=== PATIENT | female | born 1940 | race Caucasian/White ===

== ENCOUNTER 2017-01-17 12:36 | Emergency (ER) | payer OTHER ==
[~2017-01-17] VITALS: Ht 165.1 cm; Wt 66.0 kg
[~2017-01-17 12:36] MED LIST: ASPI81TA82 PO; ATOR40TA49 PO; AUGM875T PO; CARA1TAB2 PO; GABA100C4 PO; GLIP10TA6 PO; LISI-363 PO; OMEP20TA39 PO
[2017-01-17 12:56] VITALS: BP 220/101; PULSE 49; RESP 18; TEMP 98.3; O2SAT 98
--- NOTE | 2017-01-17 13:14 | PD ---
HPI Chief Complaint: Dizziness Time Seen by Provider: 12:51 Travel History International Travel<30 days: No Contact w/Intl Traveler<30days: No Traveled to known affect area: No History of Present Illness HPI This 76-year-old female says that about an hour ago she had a funny feeling in her head. She has some trouble describing this feeling. She says the room was not spinning but she did feel right and is afraid she was given a fall. The symptoms are worse when she moves. She does not recall having this sensation before. She is not having a headache. She is not having any chest pain or shortness of breath. She does have a history of coronary artery disease. She had bypass 5 2004. She has a history of hypertension and has not taken her blood pressure medicine yet today. She normally takes it at noon. She had felt well earlier today. She went to [employer] this morning. In general she says she has a very poor appetite. She has a history of diabetes. She was able to walk to her son's car [facility] Past Medical History Cardiovascular Problems: Yes High Cholesterol: Yes Coronary Artery Disease: Yes Diabetes: Yes GERD: Yes Past Surgical History Cholecystectomy: Yes Coronary Artery Bypass Graft: Yes Social History Alcohol Use: No Tobacco Use: No Substance Use: No Allergies-Medications (Allergen,Severity, Reaction): Coded Allergies: No Known Allergies (Unverified , 01/17/17) Reported Meds & Prescriptions Reported Meds & Active Scripts Active Reported Gabapentin 100 Mg Cap 100 Mg PO HS Atorvastatin (Atorvastatin Calcium) 40 Mg Tab 40 Mg PO HS Carafate (Sucralfate) 1 Gm Tab 1 Gm PO TID On empty stomach Glipizide 5 Mg Tab 5 Mg PO BIDAC Take 30 minutes before a meal Lisinopril 10 Mg Tab 10 Mg PO DAILY Aspirin Low Dose (Aspirin) 81 Mg Chew 81 Mg CHEW DAILY Review of Systems General / Constitutional: No: Fever, Chills Eyes: No: Diploplia HENT: No: Headaches Cardiovascular: No: Chest Pain or Discomfort, Palpitations Respiratory: No: Cough, Shortness of Breath Gastrointestinal: Positive: Loss of Appetite, No: Vomiting Genitourinary: No: Urgency, Frequency Musculoskeletal: No: Myalgias, Arthralgias Skin: No Rash Neurologic: Positive: Weakness, No: Syncope, Focal Abnormalities, Change in Mentation Endocrine: No: Heat Intolerance, Cold Intolerance Hematologic/Lymphatic: No: Easy Bruising Physical Exam Narrative GENERAL: Well-developed female. Pulse rate is 50 and blood pressure 200/100 SKIN: Focused skin assessment warm/dry. HEAD: Atraumatic. Normocephalic. EYES: Pupils equal and round. No scleral icterus. No injection or drainage. ENT: No nasal bleeding or discharge. Mucous membranes pink and moist. NECK: Trachea midline. No JVD. CARDIOVASCULAR: Regular rate and rhythm. Systolic murmur is present throughout the precordium RESPIRATORY: No accessory muscle use. Clear to auscultation. Breath sounds equal bilaterally. GASTROINTESTINAL: Abdomen soft, non-tender, nondistended. Hepatic and splenic margins not palpable. MUSCULOSKELETAL: No obvious deformities. No clubbing. No cyanosis. No edema. NEUROLOGICAL: Awake and alert. No obvious cranial nerve deficits. Motor grossly within normal limits. Normal speech. PSYCHIATRIC: Appropriate mood and affect; insight and judgment normal. Data Data Last Documented VS Vital Signs Date Time Temp Pulse Resp B/P Pulse Ox O2 Delivery O2 Flow Rate FiO2 01/17/17 14:31 47 18 183/71 98 Room Air 01/17/17 12:56 98.3 Orders Electrocardiogram (01/17/17 13:07) Complete Blood Count With Diff (01/17/17 13:07) Basic Metabolic Panel (Bmp) (01/17/17 13:07) Troponin I (01/17/17 13:07) Urinalysis - C+S If Indicated (01/17/17 13:07) Magnesium (Mg) (01/17/17 13:07) Thyroid Stimulating Hormone (01/17/17 13:07) Ct Brain W/O Iv Contrast(Rout) (01/17/17 13:07) Lisinopril (Prinivil) (01/17/17 13:15) Lisinopril (Prinivil) (01/17/17 13:15) Orthostatic Vital Signs (01/17/17 13:14) Meclizine (Antivert) (01/17/17 13:30) Labs Laboratory Tests Test 01/17/17 01/17/17 11:58 13:50 White Blood Count 7.1 TH/MM3 Red Blood Count 4.69 MIL/MM3 Hemoglobin 14.2 GM/DL Hematocrit 42.0 % Mean Corpuscular Volume 89.5 FL Mean Corpuscular Hemoglobin 30.3 PG Mean Corpuscular Hemoglobin 33.9 % Concent Red Cell Distribution Width 13.0 % Platelet Count 152 TH/MM3 Mean Platelet Volume 9.0 FL Neutrophils (%) (Auto) 54.4 % Lymphocytes (%) (Auto) 37.2 % Monocytes (%) (Auto) 7.5 % Eosinophils (%) (Auto) 0.6 % Basophils (%) (Auto) 0.3 % Neutrophils # (Auto) 4.0 TH/MM3 Lymphocytes # (Auto) 2.6 TH/MM3 Monocytes # (Auto) 0.5 TH/MM3 Eosinophils # (Auto) 0.0 TH/MM3 Basophils # (Auto) 0.0 TH/MM3 CBC Comment DIFF FINAL Differential Comment Sodium Level 143 MEQ/L Potassium Level 3.7 MEQ/L Chloride Level 105 MEQ/L Carbon Dioxide Level 25.8 MEQ/L Anion Gap 12 MEQ/L Blood Urea Nitrogen 19 MG/DL Creatinine 0.68 MG/DL Estimat Glomerular Filtration 84 ML/MIN Rate Random Glucose 87 MG/DL Calcium Level 9.4 MG/DL Magnesium Level 1.9 MG/DL Troponin I LESS THAN 0.02 NG/ML Thyroid Stimulating Hormone 3.010 uIU/ML 3rd Gen Urine Collection Type CLEAN CATCH Urine Color YELLOW Urine Turbidity CLEAR Urine pH 5.5 Urine Specific [place] 1.006 Urine Protein NEG mg/dL Urine Glucose (UA) NEG mg/dL Urine Ketones NEG mg/dL Urine Occult Blood TRACE Urine Nitrite NEG Urine Bilirubin NEG Urine Leukocyte Esterase SMALL Urine RBC 0-3 /hpf Urine WBC 0-2 /hpf Microscopic Urinalysis Comment CULT NOT INDICATED MDM Medical Decision Making Medical Screen Exam Complete: Yes Emergency Medical Condition: Yes Medical Record Reviewed: Yes Differential Diagnosis Differential includes dysrhythmia, electrolyte imbalance, CVA Narrative Course EKG shows sinus bradycardia with a rate of 50. Review of chart from last few years shows a her pulses persistently low. She has readings of 54, 46 and 48 in the last few years. Later in the course of her ER stay she says that this feeling seems worse when she looks to the right. A CT scan of the brain has been obtained and read as negative. Patient was given Antivert and reports some improvement in her symptoms after the Antivert. She is able to look to the right. She has some residual discomfort. Diagnosis Primary Impression: Vertigo Scripts Meclizine 25 Mg Tab25 Mg PO TID PRN (VERTIGO) #20 TAB Ref 0 Prov:Chino Jose MD 01/17/17 Disposition: 01 DISCHARGE HOME Condition: Stable Chino Jose MD Jan 17, 2017 13:14
[2017-01-17] MEDS ORDERED: LISINOPRIL 5 MG TAB PO ONE (13:15)
[2017-01-17] MEDS ORDERED: LISINOPRIL 10 MG TAB PO ONE (13:15)
[2017-01-17] MEDS ORDERED: GABA100C4 PO (13:17)
[2017-01-17] MEDS ORDERED: ASPI81CH37 CHEW (13:17)
[2017-01-17] MEDS ORDERED: CARA1TAB6 PO (13:17)
[2017-01-17] MEDS ORDERED: ATOR40TA16 PO (13:17)
[2017-01-17] MEDS ORDERED: LISI10TA3 PO (13:17)
[2017-01-17] MEDS ORDERED: GLIP5TAB8 PO (13:17)
[2017-01-17 13:20] LABS: BASOPHIL % 0.3 % (0.0-2.0); EOSINOPHIL % 0.6 % (0.0-4.0); HEMO FLAGS DIFF FINAL; LYMPH % 37.2 % (9.0-44.0); LYMPHOCYTE # 2.6 TH/MM3 (1.0-4.8); MEAN CELL VOLUME 89.5 FL (80.0-100.0); MEAN CORPUSCULAR HEMOGLOBIN 30.3 PG (27.0-34.0); MEAN CORPUSCULAR HGB CONC 33.9 % (32.0-36.0); MONO % 7.5 % (0.0-8.0); NEUT % 54.4 % (16.0-70.0); PLATELET COUNT 152 TH/MM3 (150-450); RED BLOOD COUNT 4.69 MIL/MM3 (4.00-5.30); WHITE BLOOD COUNT 7.1 TH/MM3 (4.0-11.0)
[2017-01-17 13:27] LABS: CHLORIDE 105 MEQ/L (98-107); POTASSIUM 3.7 MEQ/L (3.5-5.1); SODIUM (NA) 143 MEQ/L (136-145)
[2017-01-17 13:30] LABS: ANION GAP 12 MEQ/L (5-15); BICARBONATE 25.8 MEQ/L (21.0-32.0); MAGNESIUM 1.9 MG/DL (1.5-2.5)
[2017-01-17] MEDS ORDERED: MECLIZINE HCL 25 MG TAB PO ONE (13:30)
[2017-01-17 13:31] LABS: BLOOD UREA NITROGEN 19 MG/DL (7-18)
[2017-01-17 13:34] LABS: GLOMERULAR FILTRATION RATE 84 ML/MIN (>89)
[2017-01-17 13:57] VITALS: BP_SYST 188; BP_SYST 192; BP_SYST 203; BP_DIAS 106; BP_DIAS 78; BP_DIAS 88; RESP 18; RESP 20
[2017-01-17 14:00] LABS: BLOOD, URINE TRACE (NEG); GLUCOSE,URINE NEG (NEG); KETONE, URINE NEG (NEG); NITRITE,URINE NEG (NEG); PH, URINE 5.5 (5.0-8.5)
--- NOTE | 2017-01-17 14:05 | RADRPT ---
EXAM DATE/TIME: 01/17/2017 13:23 [facility] COMPARISON: No previous studies available for comparison. INDICATIONS : General weakness ,dizzy RADIATION DOSE: 61.16 CTDIvol (mGy) MEDICAL HISTORY : Cardiovascular disease. Diabetes SURGICAL HISTORY : Cholecystectomy. CABG ENCOUNTER: Initial ACUITY: 1 day PAIN SCALE: 0/10 LOCATION: cranial TECHNIQUE: Multiple contiguous axial images were obtained of the head. Using automated exposure control and adj ustment of the mA and/or kV according to patient size, radiation dose was kept as low as reasonably a chievable to obtain optimal diagnostic quality images. DICOM format image data is available electro nically for review and comparison. FINDINGS: CEREBRUM: The ventricles are normal for age. No evidence of midline shift, mass lesion, hemorrhage or acute in farction. No extra-axial fluid collections are seen. POSTERIOR FOSSA: The cerebellum and brainstem are intact. The 4th ventricle is midline. The cerebellopontine angle i s unremarkable. EXTRACRANIAL: The visualized portion of the orbits is intact. SKULL: The calvaria is intact. No evidence of skull fracture. CONCLUSION: Normal examination for a patient of this age. Roni Villalobos MD on January 17, 2017 at 14:01 Board Certified Radiologist. This report was verified electronically.
[2017-01-17 14:31] VITALS: BP 183/71; PULSE 47; RESP 18; O2SAT 98
[2017-01-17 14:43] LABS: COMMENT (UR) CULT NOT INDICATED; CULTURE IF INDICATED CULT NOT INDICATED; METHOD OF COLLECTION CLEAN CATCH; RBC, URINE 0-3 /hpf (0-3); URINE COLOR YELLOW (YELLW/STRAW); WBC, URINE 0-2 /hpf (0-5)
[2017-01-17] MEDS ORDERED: MECL-62 PO (14:54)
--- NOTE | 2017-01-18 10:04 | EKG ---
Date Performed: 01/17/2017 Time Performed: 12:56:57 PTAGE: 76 years EKG: sinus bradycardia and sinus arrhythmia SEPTAL MYOCARDIAL INFARCTION ABNORMAL ECG PREVIOUS TRACING : 12/15/2013 21.11 DOCTOR: Austin Ann Interpretating Date/Time 01/18/2017 10:04:05
== END 2017-01-17 15:12 | disposition home or self-care (01) ==
LOC: PHED 12:36
DX: R42 Dizziness and giddiness (principal); R00.1 Bradycardia, unspecified; R53.1 Weakness; E11.9 Type 2 diabetes mellitus without complications; E78.00 Pure hypercholesterolemia, unspecified; K21.9 Gastro-esophageal reflux disease without esophagitis; Z95.1 Presence of aortocoronary bypass graft; Z79.84 Long term (current) use of oral hypoglycemic drugs; R94.31 Abnormal electrocardiogram [ECG] [EKG]
CPT/HCPCS: 70450; 80048; 81001; 83735; 84443; 84484; 85025; 93005

== ENCOUNTER 2017-04-06 14:10 | Emergency (ER) | payer OTHER ==
[~2017-04-06] VITALS: Ht 165.1 cm; Wt 64.0 kg
[~2017-04-06 14:10] MED LIST changes: +ASPI81CH37 CHEW; -ASPI81TA82 PO; +ATOR40TA16 PO; -ATOR40TA49 PO; -AUGM875T PO; -CARA1TAB2 PO; +CARA1TAB6 PO; -GLIP10TA6 PO; +GLIP5TAB8 PO; -LISI-363 PO; +LISI10TA3 PO; +MECL-62 PO; -OMEP20TA39 PO
[2017-04-06 14:14] VITALS: BP 205/84; PULSE 51; RESP 16; TEMP 98.9; O2SAT 97
--- NOTE | 2017-04-06 14:44 | PD ---
HPI Chief Complaint: Skin Problem Time Seen by Provider: 14:19 Travel History International Travel<30 days: No Contact w/Intl Traveler<30days: No Traveled to known affect area: No History of Present Illness HPI 76 yo F c/o ecchymosis about the right forearm for about one day. She denies trauma. No blood thinner. Timing constant. Onset gradual. No tenderness. No similar prior episodes. No CP/SOB. No hx DVT. PFSH Past Medical History Cardiovascular Problems: Yes High Cholesterol: Yes Coronary Artery Disease: Yes Diabetes: Yes Patient Takes Glucophage: No Diminished Hearing: No GERD: Yes Immunizations Current: Yes Tetanus Vaccination: Unknown ?: Not Past Surgical History Cholecystectomy: Yes Coronary Artery Bypass Graft: Yes Social History Alcohol Use: No Tobacco Use: No Substance Use: No Allergies-Medications (Allergen,Severity, Reaction): Coded Allergies: No Known Allergies (Unverified , 04/06/17) Reported Meds & Prescriptions Reported Meds & Active Scripts Active Reported Lisinopril 10 Mg Tab 10 Mg PO DAILY Aspirin Low Dose (Aspirin) 81 Mg Chew 81 Mg CHEW DAILY Review of Systems General / Constitutional: No: Fever Musculoskeletal: No: Pain Neurologic: No: Paresthesia Physical Exam Narrative GENERAL: 76 yo F, WNWD, NAD SKIN: Warm and dry. Approx 6 cm ecchymosis with approx 1 cm focal mobile mass possible c/w lipoma. Non-tender. HEAD: Normocephalic. EYES: No scleral icterus. No injection or drainage. NECK: Supple, trachea midline. No JVD or lymphadenopathy. CARDIOVASCULAR: 2+ radial artery pulse bilaterally. regular rate/rhythm. GASTROINTESTINAL: Abdomen soft, non-tender, nondistended. MUSCULOSKELETAL: No cyanosis, or edema. No generalized erythema/warmth/swelling c/w DVT. 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 BACK: Nontender without obvious deformity. No CVA tenderness. Data Data Last Documented VS Vital Signs Date Time Temp Pulse Resp B/P (MAP) Pulse Ox O2 Delivery O2 Flow Rate FiO2 04/06/17 14:14 98.9 51 16 205/84 (124) 97 Repeat blood pressure 190/80 MDM Medical Decision Making Medical Screen Exam Complete: Yes Emergency Medical Condition: Yes Medical Record Reviewed: Yes Differential Diagnosis Lipoma, ecchymosis, DVT Narrative Course Ecchymosis about right forearm. Presentation is not c/w DVT. Follow up evaluation of mobile 1 cm mass discussed, likely a lipoma. Pt agreeable with plan. Diagnosis Primary Impression: Ecchymosis of forearm Referrals: Primary Care Physician 2 days Additional Instructions: You have a choice when it comes to health care, and we are glad that you chose [facility]. Hopefully, we have met your expectations on today's visit. You are welcome to return to [facility] at any time, as we are committed to meeting the health care needs of our community. Med/Other Pt SpecificInfo: No Change to Meds Disposition: 01 DISCHARGE HOME Condition: Stable Mumtaz England MD Apr 06, 2017 14:44
== END 2017-04-06 15:05 | disposition home or self-care (01) ==
LOC: PHEFT 14:10
DX: M79.81 Nontraumatic hematoma of soft tissue (principal); E78.00 Pure hypercholesterolemia, unspecified; I25.10 Atherosclerotic heart disease of native coronary artery without angina pectoris; E11.9 Type 2 diabetes mellitus without complications; K21.9 Gastro-esophageal reflux disease without esophagitis; Z95.1 Presence of aortocoronary bypass graft
CPT/HCPCS: 99281

== ENCOUNTER 2017-04-26 07:59 | Emergency (ER) | payer OTHER ==
[~2017-04-26] VITALS: Ht 162.6 cm; Wt 64.1 kg
[~2017-04-26 07:59] MED LIST changes: -ATOR40TA16 PO; -CARA1TAB6 PO; -GABA100C4 PO; -GLIP5TAB8 PO; -MECL-62 PO
[2017-04-26 08:09] VITALS: BP 172/74; PULSE 54; RESP 18; TEMP 98.5; O2SAT 97
[2017-04-26] MEDS ORDERED: CYCLOBENZAPRINE HCL 10 MG TAB PO ONE (08:30)
[2017-04-26] MEDS ORDERED: KETOROLAC TROMETHAMINE 60 MG/2 ML (IM) VIAL IM ONE (08:30)
[2017-04-26] MEDS ORDERED: GABA100C4 PO (08:45)
[2017-04-26] MEDS ORDERED: GLIP5TAB8 PO (08:45)
[2017-04-26] MEDS ORDERED: CARA1TAB6 PO (08:45)
--- NOTE | 2017-04-26 08:45 | PD ---
HPI Chief Complaint: Back/ Neck Pain or Injury Time Seen by Provider: 08:18 Travel History International Travel<30 days: No Contact w/Intl Traveler<30days: No Traveled to known affect area: No History of Present Illness HPI Patient is a 76 year old female who comes in complaining of right sided neck pain. She says it started 3 days ago when she woke up. She has tried taking Aleve, but this has not helped. She tried to call her doctor, but she says they have not gotten back to her. She denies any injuries. She says the pain is worse with any movement. She denies fever or chills. She denies numbness or tingling of her extremities. PFSH Past Medical History Cardiovascular Problems: Yes High Cholesterol: Yes Coronary Artery Disease: Yes Diabetes: Yes Diminished Hearing: No GERD: Yes Immunizations Current: Yes Past Surgical History Cholecystectomy: Yes Coronary Artery Bypass Graft: Yes Social History Alcohol Use: No Tobacco Use: No Substance Use: No Allergies-Medications (Allergen,Severity, Reaction): Coded Allergies: No Known Allergies (Unverified , 04/06/17) Reported Meds & Prescriptions Reported Meds & Active Scripts Active Reported Carafate (Sucralfate) 1 Gram Tab 1 Gm PO TID On empty stomach Gabapentin 100 Mg Cap 100 Mg PO DAILY Glipizide 5 Mg Tab 5 Mg PO BIDAC Take 30 minutes before a meal Lisinopril 10 Mg Tab 10 Mg PO DAILY Aspirin Low Dose (Aspirin) 81 Mg Chew 81 Mg CHEW DAILY Review of Systems General / Constitutional: No: Fever, Chills Eyes: No: Blurred Vision HENT: No: Headaches, Lightheadedness Cardiovascular: No: Chest Pain or Discomfort Respiratory: No: Shortness of Breath Gastrointestinal: No: Nausea, Vomiting, Abdominal Pain Genitourinary: No: Dysuria Musculoskeletal: Positive: Pain Skin: No Rash, No Change in Pigmentation Neurologic: No: Weakness, Dizziness, Sensory Disturbance Physical Exam Narrative GENERAL: Awake and alert, in no acute distress. SKIN: Focused skin assessment warm/dry. HEAD: Atraumatic. Normocephalic. EYES: Pupils equal and round. No scleral icterus. EOMI ENT: Mucous membranes pink and moist. NECK: Trachea midline. No JVD. Tender to palpation of the paraspinal muscles on the right. No cervical spine tenderness. CARDIOVASCULAR: Regular rate and rhythm. No murmur appreciated. RESPIRATORY: No accessory muscle use. Clear to auscultation. Breath sounds equal bilaterally. MUSCULOSKELETAL: No obvious deformities. No clubbing. No cyanosis. No edema. Pain with turning her head. NEUROLOGICAL: Awake and alert. No obvious cranial nerve deficits. Motor grossly within normal limits. Normal speech. Data Data Last Documented VS Vital Signs Date Time Temp Pulse Resp B/P (MAP) Pulse Ox O2 Delivery O2 Flow Rate FiO2 04/26/17 08:20 16 04/26/17 08:09 98.5 54 172/74 (106) 97 Orders Orders Spine, Cervical Compl([id number]) (04/26/17 ) Cyclobenzaprine (Flexeril) (04/26/17 08:30) Ketorolac Inj (Toradol Inj) (04/26/17 08:30) MDM Medical Decision Making Medical Screen Exam Complete: Yes Emergency Medical Condition: Yes Medical Record Reviewed: Yes Differential Diagnosis muscle strain vs spasm vs pinched nerve Narrative Course Patient is a 76-year-old female comes in complaining of right-sided neck pain. Exam shows tenderness to the muscles. She has pain with movement of her neck. Patient given Toradol and Flexeril. She reports improvement of her symptoms. X -ray of the cervical spine performed shows degenerative changes, no other acute abnormalities. Patient given a prescription for Flexeril, 5 mg. She is advised to continue using the muscle cream, as well as a heating pad if this helps. Advised follow- up with her doctor. Advised to return to the ED as needed for any worsening symptoms. Diagnosis Primary Impression: Neck strain Qualified Codes: S16.1XXA - Strain of muscle, fascia and tendon at neck level , initial encounter Patient Instructions: Cervical Strain (ED), General Instructions Additional Instructions: Follow-up with your doctor. Take the muscle relaxer as needed, but be careful as it may make you tired. You can continue to take Tylenol and use over-the- counter medications for pain. Return to the emergency department as needed for any worsening symptoms. Scripts Cyclobenzaprine (Flexeril) 5 Mg Tab 5 MG PO TID for Muscle Spasm, #15 TAB 0 Refills Prov: Cherry Clifton MD 04/26/17 Disposition: 01 DISCHARGE HOME Condition: Stable Cherry Clifton MD Apr 26, 2017 08:45
--- NOTE | 2017-04-26 09:00 | RADRPT ---
EXAM DATE/TIME: 04/26/2017 08:37 [facility] COMPARISON: No previous studies available for comparison. INDICATIONS : Severe neck pain with no known injury. MEDICAL HISTORY : Cardiovascular disease. Diabetes SURGICAL HISTORY : Cholecystectomy. CABG ENCOUNTER: Initial ACUITY: 3 days PAIN SCORE: 10/10 LOCATION: cervical spine. FINDINGS: A complete cervical spine series shows diffuse osteopenia. There is straightening of the cervical spi ne. Disc space narrowing with anterior osteophyte production at C5-C6 and C6-C7. No fracture or dislo cation. Neural foramina are patent. Paraspinal soft tissues are normal. CONCLUSION: Osteopenia and degenerative changes without acute abnormality. Gene Blackman Jr., MD on April 26, 2017 at 8:56 Board Certified Radiologist. This report was verified electronically.
[2017-04-26] MEDS ORDERED: CYCL5TAB PO (09:27)
[2017-04-26 09:33] VITALS: RESP 16
[2017-04-26 09:50] VITALS: BP 163/77
== END 2017-04-26 09:50 | disposition home or self-care (01) ==
LOC: PHED 07:59
DX: S16.1XXA Strain of muscle, fascia and tendon at neck level, initial encounter (principal); E11.9 Type 2 diabetes mellitus without complications; I25.10 Atherosclerotic heart disease of native coronary artery without angina pectoris; E78.00 Pure hypercholesterolemia, unspecified; Z95.1 Presence of aortocoronary bypass graft; X58.XXXA Exposure to other specified factors, initial encounter
CPT/HCPCS: 72050; 96372; 99284; J1885

== ENCOUNTER 2017-12-19 09:45 | Inpatient (IN) | payer OTHER, MEDICARE ==
[2017-12-19] VITALS (7 sets, daily range): BP systolic 114–162; BP diastolic 57–86; PULSE 49–62; RESP 16–18; TEMP 98.3–100.2; O2SAT 95–99
[~2017-12-19] VITALS: Ht 167.6 cm; Wt 67.0 kg
[~2017-12-19 09:45] MED LIST changes: -ASPI81CH37 CHEW; +ASPI81CH6 CHEW; +CARA1TAB6 PO; +CYCL5TAB PO; +GABA100C4 PO; +GLIP5TAB8 PO
[2017-12-19] MEDS ORDERED: IOHEXOL 350 MG/ML 10 ML VIAL (for RAD DIAG) IVCONTRAST ONE (09:46)
[2017-12-19] MEDS ORDERED: SODIUM CHLORIDE 0.9% FLUSH 10 ML FLUSH IVF PRN (10:15)
[2017-12-19 10:41] LABS: AUTOMATED NEUTROPHIL # 11.2 TH/MM3 (1.8-7.7); BASOPHIL # 0.1 TH/MM3 (0-0.2); BASOPHIL % 0.4 % (0.0-2.0); EOSINOPHIL % 0.2 % (0.0-4.0); HEMATOCRIT 43.6 % (35.0-46.0); HEMOGLOBIN 14.7 GM/DL (11.6-15.3); LYMPH % 11.2 % (9.0-44.0); LYMPHOCYTE # 1.5 TH/MM3 (1.0-4.8); MEAN CORPUSCULAR HGB CONC 33.8 % (32.0-36.0); MEAN PLATELET VOLUME 9.4 FL (7.0-11.0); MONO % 5.9 % (0.0-8.0); MONOCYTE # 0.8 TH/MM3 (0-0.9); NEUT % 82.3 % (16.0-70.0); PLATELET COUNT 164 TH/MM3 (150-450); WHITE BLOOD COUNT 13.6 TH/MM3 (4.0-11.0)
[2017-12-19 10:51] LABS: INTERNATIONAL NORMALIZED RATIO 1.1 RATIO; PROTHROMBIN TIME - PATIENT 11.1 SEC (9.8-11.6)
--- NOTE | 2017-12-19 11:19 | RADRPT ---
EXAM DATE: 12/19/2017 10:53 AM EDT AGE/SEX: 77 years / Female INDICATIONS: Left proximal femur pain post fall. CLINICAL DATA: This is the patient's initial encounter. Patient reports that signs and symptoms have been present for 1 day and indicates a pain score of 1/10. MEDICAL/SURGICAL HISTORY: None. None. COMPARISON: No prior [facility] exams available for comparison. FINDINGS: Bony structures are intact and in normal alignment. Osseous density is normal. Soft tissues are unre markable. No radiopaque foreign bodies seen. Dense atherosclerotic disease CONCLUSION: Atherosclerotic disease. No acute fracture. 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
[2017-12-19 11:20] LABS: ALBUMIN 3.9 GM/DL (3.4-5.0); ALKALINE PHOSPHATASE 61 U/L (45-117); ALT (GPT) 20 U/L (10-53); AST (GOT) 27 U/L (15-37); BICARBONATE 20.9 MEQ/L (21.0-32.0); BLOOD UREA NITROGEN 23 MG/DL (7-18); CHLORIDE 104 MEQ/L (98-107); CREATININE 1.01 MG/DL (0.50-1.00); GLOMERULAR FILTRATION RATE 53 ML/MIN (>89); GLUCOSE,RANDOM 138 MG/DL (74-106); MAGNESIUM 2.4 MG/DL (1.5-2.5); SODIUM (NA) 138 MEQ/L (136-145); TOTAL BILIRUBIN ADULT 0.9 MG/DL (0.2-1.0); TOTAL PROTEIN 7.5 GM/DL (6.4-8.2); TROPONIN I LESS THAN 0.02 NG/ML (0.02-0.05)
--- NOTE | 2017-12-19 11:25 | RADRPT ---
EXAM DATE: 12/19/2017 10:55 AM EDT AGE/SEX: 77 years / Female INDICATIONS: Syncope. CLINICAL DATA: This is the patient's initial encounter. Patient reports that signs and symptoms have been present for 1 day and indicates a pain score of 0/10. MEDICAL/SURGICAL HISTORY: None. CABG. COMPARISON: No prior [facility] exams available for comparison. FINDINGS: A single AP view of the chest demonstrates the lungs to be symmetrically aerated without evidence of mass, infiltrate or effusion. The cardiomediastinal contours are unremarkable. Osseous structures a re intact. Clips and wires suggests CABG CONCLUSION: Status post CABG. Lungs are grossly clear. Electronically signed by: Austin Nicole MD 12/19/2017 11:24 AM EDT
[2017-12-19] MEDS ORDERED: SODIUM CHLOR 0.9% 1000 ML INJ 1,000 ML IV ONE (11:30)
--- NOTE | 2017-12-19 11:53 | PD ---
HPI Chief Complaint: GI Complaint Time Seen by Provider: 11:00 Travel History International Travel<30 days: No Contact w/Intl Traveler<30days: No Traveled to known affect area: No History of Present Illness HPI 77-year-old female presents to the ED for evaluation after near syncopal episode and fall today. Patient endorses chronic constipation. She states that she uses enemas and suppositories regularly. She states that she has chronic cramping lower abdominal pain. States she had an episode today and try to have a bowel movement. She had a syncopal episode, fell to the ground. She did not hit her head or lose consciousness. Her son was present and brought her to the ED. on presentation patient is alert and oriented. She denies fever , chills headache, dizziness, chest pain, palpitations, shortness of breath. She states that her stools are very hard, nonbloody balls usually. She states when she uses suppositories and enemas they are very loose. She endorses multiple episodes of loose bowel movements today. She endorses a single episode of vomiting. Denies nausea on presentation. Patient endorses distant history of colonoscopy. She has been ambulatory since the fall. She endorses "very little" left hip pain. She denies numbness, tingling, weakness, limitations to range of motion of the extremities. She states that she is scheduled for pacemaker insertion later this week and is concerned that today's fall may interrupt that plan. PFSH Past Medical History Cardiac Catheterization: Yes Cardiovascular Problems: Yes High Cholesterol: Yes Coronary Artery Disease: Yes Diabetes: Yes Diminished Hearing: No GERD: Yes Hypertension: Yes Immunizations Current: Yes ?: Not Past Surgical History Cholecystectomy: Yes Coronary Artery Bypass Graft: Yes (unknown how many vessels?) Social History Alcohol Use: No Tobacco Use: No (quit 2004) Substance Use: No Allergies-Medications (Allergen,Severity, Reaction): Coded Allergies: No Known Allergies (Unverified Allergy, Unknown, 12/19/17) Reported Meds & Prescriptions Reported Meds & Active Scripts Active Flexeril (Cyclobenzaprine HCl) 5 Mg Tab 5 Mg PO TID Reported Carafate (Sucralfate) 1 Gram Tab 1 Gm PO TID On empty stomach Gabapentin 100 Mg Cap 100 Mg PO DAILY Glipizide 5 Mg Tab 5 Mg PO BIDAC Take 30 minutes before a meal Lisinopril 10 Mg Tab 10 Mg PO DAILY Aspirin Low Dose (Aspirin) 81 Mg Chew 81 Mg CHEW DAILY Physical Exam Narrative GENERAL: Well-nourished, well-developed pleasant white female no acute distress. SKIN: Focused skin assessment warm/dry. HEAD: Normocephalic. Atraumatic. EYES: No scleral icterus. No injection or drainage. NECK: Supple, trachea midline. No JVD or lymphadenopathy. No posterior midline tenderness. CARDIOVASCULAR: Regular rate and rhythm. Blowing holosystolic murmur, best heard at the left parasternal border. No gallops or rubs noted. RESPIRATORY: Breath sounds equal bilaterally. No accessory muscle use. GASTROINTESTINAL: Abdomen soft, nondistended. Hypoactive bowel sounds. Tender to palpation of the bilateral lower quadrants. RECTAL EXAM: No masses or tenderness, stool is brown. Guaiac positive. MUSCULOSKELETAL: No cyanosis, or edema. No tenderness to palpation of the joint joints of the upper and lower extremities bilaterally. Moves extremities spontaneously. Noted to walk with a normal gait. BACK: Nontender without obvious deformity. No CVA tenderness. Data Data Last Documented VS Vital Signs Date Time Temp Pulse Resp B/P (MAP) Pulse Ox O2 Delivery O2 Flow Rate FiO2 12/19/17 13:36 62 18 149/86 (107) 98 Room Air 12/19/17 09:56 98.3 Orders Orders Electrocardiogram (12/19/17 10:08) Complete Blood Count With Diff (12/19/17 10:08) Comprehensive Metabolic Panel (12/19/17 10:08) Magnesium (Mg) (12/19/17 10:08) Ckmb (Isoenzyme) Profile (12/19/17 10:08) Troponin I (12/19/17 10:08) Act Partial Throm Time (Ptt) (12/19/17 10:08) Prothrombin Time / Inr (Pt) (12/19/17 10:08) Urinalysis - C+S If Indicated (12/19/17 10:08) Chest, Single Ap (12/19/17 10:08) Ecg Monitoring (12/19/17 10:08) Iv Access Insert/Monitor (12/19/17 10:08) Oximetry (12/19/17 10:08) Sodium Chloride 0.9% Flush (Ns Flush) (12/19/17 10:15) Ct Abd/Pel W Iv Contrast(Rout) (12/19/17 ) Femur (Ap & Lat/2vws) (12/19/17 ) CKMB (12/19/17 10:15) CKMB% (12/19/17 10:15) Sodium Chlor 0.9% 1000 Ml Inj (Ns 1000 M (12/19/17 11:30) Iohexol 350 Inj (Omnipaque 350 Inj) (12/19/17 09:46) Lactic Acid (12/19/17 13:18) Morphine Inj (Morphine Inj) (12/19/17 13:30) Ciprofloxacin 400 Mg Premix (Cipro 400 M (12/19/17 14:45) Metronidazole 500 Mg Inj (Flagyl 500 Mg (12/19/17 14:45) Admit Order (Ed Use Only) (12/19/17 14:52) Labs Laboratory Tests Test 12/19/17 10:15 12/19/17 11:53 12/19/17 13:20 White Blood Count 13.6 TH/MM3 Red Blood Count 4.90 MIL/MM3 Hemoglobin 14.7 GM/DL Hematocrit 43.6 % Mean Corpuscular Volume 89.0 FL Mean Corpuscular Hemoglobin 30.0 PG Mean Corpuscular Hemoglobin Concent 33.8 % Red Cell Distribution Width 14.0 % Platelet Count 164 TH/MM3 Mean Platelet Volume 9.4 FL Neutrophils (%) (Auto) 82.3 % Lymphocytes (%) (Auto) 11.2 % Monocytes (%) (Auto) 5.9 % Eosinophils (%) (Auto) 0.2 % Basophils (%) (Auto) 0.4 % Neutrophils # (Auto) 11.2 TH/MM3 Lymphocytes # (Auto) 1.5 TH/MM3 Monocytes # (Auto) 0.8 TH/MM3 Eosinophils # (Auto) 0.0 TH/MM3 Basophils # (Auto) 0.1 TH/MM3 CBC Comment DIFF FINAL Differential Comment Prothrombin Time 11.1 SEC Prothromb Time International Ratio 1.1 RATIO Activated Partial Thromboplast Time 23.1 SEC Blood Urea Nitrogen 23 MG/DL Creatinine 1.01 MG/DL Random Glucose 138 MG/DL Total Protein 7.5 GM/DL Albumin 3.9 GM/DL Calcium Level 10.0 MG/DL Magnesium Level 2.4 MG/DL Alkaline Phosphatase 61 U/L Aspartate Amino Transf (AST/SGOT) 27 U/L Alanine Aminotransferase (ALT/SGPT) 20 U/L Total Bilirubin 0.9 MG/DL Sodium Level 138 MEQ/L Potassium Level 4.3 MEQ/L Chloride Level 104 MEQ/L Carbon Dioxide Level 20.9 MEQ/L Anion Gap 13 MEQ/L Estimat Glomerular Filtration Rate 53 ML/MIN Total Creatine Kinase 144 U/L Creatine Kinase MB 2.6 NG/ML Troponin I LESS THAN 0.02 NG/ML Urine Color YELLOW Urine Turbidity CLEAR Urine pH 5.0 Urine Specific Bennett 1.016 Urine Protein TRACE mg/dL Urine Glucose (UA) NEG mg/dL Urine Ketones NEG mg/dL Urine Occult Blood NEG Urine Nitrite NEG Urine Bilirubin NEG Urine Urobilinogen 2.0 MG/DL Urine Leukocyte Esterase NEG Urine RBC LESS THAN 1 /hpf Urine WBC 1 /hpf Urine Squamous Epithelial Cells 1 /hpf Urine Bacteria RARE /hpf Urine Hyaline Casts 2 /lpf Urine Mucus FEW /lpf Microscopic Urinalysis Comment CULT NOT INDICATED Lactic Acid Level 1.3 mmol/L [facility] Medical Decision Making Medical Screen Exam Complete: Yes Emergency Medical Condition: Yes Differential Diagnosis Chronic constipation versus bowel obstruction versus fecal impaction versus vasovagal syncope versus dehydration versus GI bleed versus metabolic derangement versus other Narrative Course 77-year-old female presents to the ED for evaluation after near syncopal episode and fall today. Patient endorses chronic constipation, lower abdominal pain. Patient is afebrile, pulse 50, respiratory rate 18, O2 saturation 99% on room air on presentation. On exam there is no focal neuro deficits. She does have tenderness to palpation in bilateral lower quadrants. Guaiac positive on rectal exam. EKG rate 50. HI interval 123, QRS 87, QTC 418 ms. Normal axis. No acute ST changes. Reviewed by Dr. Bashir. CXR: Status post CABG. Lungs grossly clear. Cardiac enzymes negative 1. CBC: WBC 13.6. Hemoglobin 14.7 Coags: INR 1.1. CMP: BUN 23, creatinine 1.01. Lactic acid 1.3. UA: No culture indicated. Femur x-ray: Atherosclerotic disease. No acute fracture. Extensive ossification of the patellar both superior and inferiorly CTA: Abnormal distending the sigmoid colon with wall thickening and adjacent hyperemia. Distal transverse colon may be abnormal as well. Findings diagnostic of colitis with inflammatory infectious or ischemic etiologies in the differential. This division of the abnormality vascular findings raise suspicion for ischemic process. Severe atherosclerotic disease with moderate atherosclerotic disease of the superior mesenteric artery and possibly occlusion of the VANESSA inferiorly. Addendum to the CT report: Reconstruction of the exam was performed with mid and 3D reconstructions. There is severe atherosclerotic disease of abdominal aorta calcification present near the origin of the celiac trunk but no significant stenosis. Severe calcification of the splenic artery and moderate calcification of the hepatic artery. Superior mesenteric artery demonstrates no ostial narrowing. In the mid to distal branches there is moderate calcified plaque causing mild luminal narrowing. VANESSA remains poorly visualized without definite intraluminal contrast opacification. In summary severe atherosclerotic disease but SMA appears patent without visible embolism. The VANESSA may be occluded. I discussed the results of the workup with the patient and her son at bedside. They are agreeable to admission. I spoke with Dr. Cerda who agrees to accept the patient to the medicine service. Please see medicine notes for disposition. [facility] Point of Care Internal Pos. & Neg. Controls: Passed Fecal Specimen Occult Blood: Positive Ange Garcia Dec 19, 2017 11:53
[2017-12-19 12:27] LABS: BACTERIA, URINE RARE /hpf; BILIRUBIN, URINE NEG (NEG); BLOOD, URINE NEG (NEG); GLUCOSE,URINE NEG (NEG); HYALINE CAST, URINE 2 /lpf (RARE); KETONE, URINE NEG (NEG); MUCUS URINE FEW /lpf (OCC); NITRITE,URINE NEG (NEG); SQUAMOUS EPITHELIAL CELL URINE 1 /hpf (0-5); URINE COLOR YELLOW (YELLW/STRAW); URINE LEUKOCYTE ESTERASE NEG (NEG)
--- NOTE | 2017-12-19 12:58 | RADRPT ---
EXAM DATE: 12/19/2017 12:20 PM EDT AGE/SEX: 77 years / Female INDICATIONS: Lower quadrants abdominal pain. Constipation. Syncopal episode today. CLINICAL DATA: This is the patient's initial encounter. Patient reports that signs and symptoms have been present for 1 day and indicates a pain score of 5/10. MEDICAL/SURGICAL HISTORY: Cardiovascular disease. Hypertension. Gastroesophageal reflux disea se. Diabetes. Cholecystectomy. ORAL CONTRAST: No oral contrast ingested. RADIATION DOSE: 7.82 CTDI (mGy) COMPARISON: No prior [facility] exams available for comparison. TECHNIQUE: Multiple contiguous axial images were obtained through the abdomen and pelvis following b olus infusion of 93 ml Omnipaque 350 (iohexol) nonionic water-soluble contrast as a single exam dos e. No oral contrast ingested. Using automated exposure control and adjustment of the mA and/or kV ac cording to patient size, the radiation dose was kept as low as reasonably achievable to obtain optima l diagnostic quality images. FINDINGS: Lower chest: No acute abnormality is identified. Hepatobiliary: No focal liver lesion is identified. Hepatic vasculature demonstrates no abnormality. Gallbladder is absent. There is no significant bile duct dilatation. Kidneys: No hydronephrosis, stone, or mass. Adrenal Glands: Within normal limits. Spleen: Within normal limits. Pancreas: Within normal limits. Vascular: The aorta is nonaneurysmal. There is severe atherosclerotic disease of the abdominal aorta. There is moderate atherosclerotic disease these of the superior mesenteric artery. VANESSA is not well-v isualized and may not be patent. Bowel/Mesentery: The stomach and small bowel have a normal appearance . Entire descending colon and m ost of the sigmoid colon demonstrate abnormal circumferential wall thickening with engorgement of the vasa recta. The distal half of the transverse colon may be abnormal as well. A small hiatal hernia i s present. There is no free intraperitoneal air or fluid. Abdominal Wall: No hernia is visualized. Retroperitoneum: No lymphadenopathy. Bladder: No wall thickening or mass. Reproductive: Within normal limits. Inguinal: No lymphadenopathy or hernia. Musculoskeletal: No acute osseous abnormality is identified. There are degenerative changes of the claribel mbar spine. Cystic lesion is present in the right acetabulum measuring 2 cm. This may represent a sub chondral cyst. CONCLUSION: 1. Abnormal descending and sigmoid colon with wall thickening and adjacent hyperemia. The distal tra nsverse colon may be abnormal as well. Findings are diagnostic of a colitis with inflammatory, infect ious, or ischemic etiologies in the differential diagnosis. The distribution of the abnormality and v ascular findings raise suspicion for ischemic process. 2. Severe atherosclerotic disease with moderate atherosclerotic disease of the superior mesenteric a rtery and possible occlusion of the inferior mesenteric artery. Electronically signed by: Alfonso Menezes MD 12/19/2017 12:57 PM EDT
[2017-12-19] MEDS ORDERED: MORPHINE SULFATE 4 MG/ML INJ IV PUSH ONE (13:30)
--- NOTE | 2017-12-19 14:43 | PD ---
Physical Exam Narrative GENERAL: 77-year-old female in no apparent distress SKIN: Focused skin assessment warm/dry. HEAD: Atraumatic. Normocephalic. EYES: Pupils equal and round. No scleral icterus. No injection or drainage. ENT: No nasal bleeding or discharge. Mucous membranes pink and moist. NECK: Trachea midline. No JVD. CARDIOVASCULAR: Regular rate and rhythm. RESPIRATORY: No accessory muscle use. No increased effort MUSCULOSKELETAL: No obvious deformities. No clubbing. No cyanosis. NEUROLOGICAL: Awake and alert. No obvious cranial nerve deficits. Motor grossly within normal limits. Normal speech. PSYCHIATRIC: Appropriate mood and affect; insight and judgment normal. Data Data Last Documented VS Vital Signs Date Time Temp Pulse Resp B/P (MAP) Pulse Ox O2 Delivery O2 Flow Rate FiO2 12/19/17 13:36 62 18 149/86 (107) 98 Room Air 12/19/17 09:56 98.3 Orders Orders Electrocardiogram (12/19/17 10:08) Complete Blood Count With Diff (12/19/17 10:08) Comprehensive Metabolic Panel (12/19/17 10:08) Magnesium (Mg) (12/19/17 10:08) Ckmb (Isoenzyme) Profile (12/19/17 10:08) Troponin I (12/19/17 10:08) Act Partial Throm Time (Ptt) (12/19/17 10:08) Prothrombin Time / Inr (Pt) (12/19/17 10:08) Urinalysis - C+S If Indicated (12/19/17 10:08) Chest, Single Ap (12/19/17 10:08) Ecg Monitoring (12/19/17 10:08) Iv Access Insert/Monitor (12/19/17 10:08) Oximetry (12/19/17 10:08) Sodium Chloride 0.9% Flush (Ns Flush) (12/19/17 10:15) Ct Abd/Pel W Iv Contrast(Rout) (12/19/17 ) Femur (Ap & Lat/2vws) (12/19/17 ) CKMB (12/19/17 10:15) CKMB% (12/19/17 10:15) Sodium Chlor 0.9% 1000 Ml Inj (Ns 1000 M (12/19/17 11:30) Iohexol 350 Inj (Omnipaque 350 Inj) (12/19/17 09:46) Lactic Acid (12/19/17 13:18) Morphine Inj (Morphine Inj) (12/19/17 13:30) Ciprofloxacin 400 Mg Premix (Cipro 400 M (12/19/17 14:45) Metronidazole 500 Mg Inj (Flagyl 500 Mg (12/19/17 14:45) Admit Order (Ed Use Only) (12/19/17 14:52) Labs Laboratory Tests Test 12/19/17 10:15 12/19/17 11:53 12/19/17 13:20 White Blood Count 13.6 TH/MM3 Red Blood Count 4.90 MIL/MM3 Hemoglobin 14.7 GM/DL Hematocrit 43.6 % Mean Corpuscular Volume 89.0 FL Mean Corpuscular Hemoglobin 30.0 PG Mean Corpuscular Hemoglobin Concent 33.8 % Red Cell Distribution Width 14.0 % Platelet Count 164 TH/MM3 Mean Platelet Volume 9.4 FL Neutrophils (%) (Auto) 82.3 % Lymphocytes (%) (Auto) 11.2 % Monocytes (%) (Auto) 5.9 % Eosinophils (%) (Auto) 0.2 % Basophils (%) (Auto) 0.4 % Neutrophils # (Auto) 11.2 TH/MM3 Lymphocytes # (Auto) 1.5 TH/MM3 Monocytes # (Auto) 0.8 TH/MM3 Eosinophils # (Auto) 0.0 TH/MM3 Basophils # (Auto) 0.1 TH/MM3 CBC Comment DIFF FINAL Differential Comment Prothrombin Time 11.1 SEC Prothromb Time International Ratio 1.1 RATIO Activated Partial Thromboplast Time 23.1 SEC Blood Urea Nitrogen 23 MG/DL Creatinine 1.01 MG/DL Random Glucose 138 MG/DL Total Protein 7.5 GM/DL Albumin 3.9 GM/DL Calcium Level 10.0 MG/DL Magnesium Level 2.4 MG/DL Alkaline Phosphatase 61 U/L Aspartate Amino Transf (AST/SGOT) 27 U/L Alanine Aminotransferase (ALT/SGPT) 20 U/L Total Bilirubin 0.9 MG/DL Sodium Level 138 MEQ/L Potassium Level 4.3 MEQ/L Chloride Level 104 MEQ/L Carbon Dioxide Level 20.9 MEQ/L Anion Gap 13 MEQ/L Estimat Glomerular Filtration Rate 53 ML/MIN Total Creatine Kinase 144 U/L Creatine Kinase MB 2.6 NG/ML Troponin I LESS THAN 0.02 NG/ML Urine Color YELLOW Urine Turbidity CLEAR Urine pH 5.0 Urine Specific [place] 1.016 Urine Protein TRACE mg/dL Urine Glucose (UA) NEG mg/dL Urine Ketones NEG mg/dL Urine Occult Blood NEG Urine Nitrite NEG Urine Bilirubin NEG Urine Urobilinogen 2.0 MG/DL Urine Leukocyte Esterase NEG Urine RBC LESS THAN 1 /hpf Urine WBC 1 /hpf Urine Squamous Epithelial Cells 1 /hpf Urine Bacteria RARE /hpf Urine Hyaline Casts 2 /lpf Urine Mucus FEW /lpf Microscopic Urinalysis Comment CULT NOT INDICATED Lactic Acid Level 1.3 mmol/L MDM Supervised Visit with MAE: Yes Interpretation(s) CBC & BMP Diagram 12/19/17 10:15 Total Protein 7.5, Albumin 3.9, Calcium Level 10.0, Magnesium Level 2.4, Alkaline Phosphatase 61, Aspartate Amino Transf (AST/SGOT) 27, Alanine Aminotransferase (ALT/SGPT) 20, Total Bilirubin 0.9 Last 24 hours Impressions Chest X-Ray 12/19/17 1008 Signed Impressions: CONCLUSION: Status post CABG. Lungs are grossly clear. Femur X-Ray 12/19/17 0000 Signed Impressions: CONCLUSION: Atherosclerotic disease. No acute fracture. 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 Abnormal descending and sigmoid colon with wall thickening and adjacent hyp eremia. The distal transverse colon may be abnormal as well. Findings are diagn ostic of a colitis with inflammatory, infectious, or ischemic etiologies in the differential diagnosis. The distribution of the abnormality and vascular findi ngs raise suspicion for ischemic process. 2. Severe atherosclerotic disease with moderate atherosclerotic disease of the superior mesenteric artery and possible occlusion of the inferior mesenteric a rtery. Narrative Course I, Dr. bashir, have reviewed the advance practice practitioner's documentation and am in agreement, met with the patient face to face, made the diagnosis, and the medical decision making was done by me. *My assessment and Findings: 77-year-old female presents with abdominal pain over the past couple of days. CT shows colitis with concern for ischemia. CTA reconstruction shows no area that can be stented. Will place on antibiotics. Patient has mild leukocytosis. Patient also had syncopal event today in the bathroom which was likely vasovagal but given bradycardia and need for pacemaker this will be further monitored in the hospital. Physician Communication Physician Communication dr guevara states ct abdomen pelvis on reconstruction shows no stentable vessel. There is disease to the inferior mesenteric but this is not uncommon and may be a low flow scenario. dr seals agrees to admit Diagnosis Primary Impression: Colitis Additional Impression: Syncope Qualified Codes: R55 - Syncope and collapse Admitting Information Admitting Physician Requests: Admit oJ Bashir MD Dec 19, 2017 14:43
[2017-12-19] MEDS ORDERED: CIPROFLOXACIN 400 MG PREMIX 200 ML IV ONE (14:45)
[2017-12-19] MEDS ORDERED: metroNIDAZOLE 500 MG INJ 100 ML IV ONE (14:45)
[2017-12-19] MEDS: SODIUM CHLOR 0.9% 1000 ML INJ 1,000 ML IV SCH (15:56)
[2017-12-19] MEDS ORDERED: NALOXONE HCL 0.4 MG/ML AMP IV PUSH PRN (16:00)
[2017-12-19] MEDS ORDERED: traMADol HCL 50 MG TAB PO PRN ×2 (16:00)
[2017-12-19] MEDS ORDERED: ACETAMINOPHEN 325 MG TAB PO PRN ×2 (16:00)
[2017-12-19] MEDS ORDERED: SODIUM CHLORIDE 0.9% FLUSH 10 ML FLUSH IV FLUSH PRN (16:00)
--- NOTE | 2017-12-19 16:27 | HHI.HP ---
[facility] Abelino Phillip MD Admission Diagnosis Colitis, syncope, bradycardia Diagnoses: Chief Complaint: Large intestine pain Travel History International Travel<30 Days: No Contact w/Intl Traveler <30 Da: No Traveled to Known Affected Are: No History of Present Illness The patient is a 77-year-old female with past medical history of bradycardia, CABG and gastritis who is presenting to the hospital with abdominal pain and bright red blood per rectum. The patient says that she always has problems with constipation. She takes suppositories on a regular basis and strains with bowel movements. She said that today during a strenuous bowel movement she almost passed out and had to crawl from the floor in the bathroom to her bedroom. She called her son who helped her get to the hospital. The patient apparently had a similar episode of lower abdominal pain in the past. She said she had a workup with an upper and lower endoscopy. She is unable to remember who the assistant store manager was. She says she has almost passed out while trying to pass bowel movements in the past. The patient says that her pain is located in the lower part of her abdomen and describes it as large intestine pain. She says eating food makes it better. The pt says that her bowel movements have become watery and bloody as of today. She says she has been passing small amounts of pure blood. She says that she does have gastritis and having sucralfate seems to be helping. She says she has a slow heart rate and is due to have a pacemaker on Monday. Discussed with her son at the bedside. Review of Systems Except as stated in HPI: all other systems reviewed are Neg Past Family Social History Past Medical History Diabetes Hypertension CAD status post CABG 5 in 2004 Bradycardia Gastritis Allergies: Coded Allergies: No Known Allergies (Unverified Allergy, Unknown, 12/19/17) Family History CAD Cancer Social History The patient quit smoking in 2004. She does not drink alcohol. Physical Exam Vital Signs Vital Signs Date Time Temp Pulse Resp B/P (MAP) Pulse Ox O2 Delivery O2 Flow Rate FiO2 12/19/17 13:36 62 18 149/86 (107) 98 Room Air 12/19/17 11:55 52 18 157/57 (90) 97 Room Air 12/19/17 10:13 18 99 Room Air 12/19/17 09:56 98.3 50 18 114/60 (78) 99 Room Air Physical Exam GENERAL: This is a well-nourished, well-developed patient, in no apparent distress. SKIN: No rashes, ecchymoses or lesions. Cool and dry. HEAD: Atraumatic. Normocephalic. No temporal or scalp tenderness. EYES: Pupils equal round and reactive. Extraocular motions intact. No scleral icterus. No injection or drainage. ENT: Nose without bleeding, purulent drainage or septal hematoma. Throat without erythema, tonsillar hypertrophy or exudate. Uvula midline. Airway patent. NECK: Trachea midline. No JVD or lymphadenopathy. Supple, nontender, no meningeal signs. CARDIOVASCULAR: Regular rate and rhythm without murmurs, gallops, or rubs. RESPIRATORY: Clear to auscultation. Breath sounds equal bilaterally. No wheezes , rales, or rhonchi. GASTROINTESTINAL: Abdomen soft, non-tender, nondistended. No hepato-splenomegaly , or palpable masses. No guarding. MUSCULOSKELETAL: Extremities without clubbing, cyanosis, or edema. No joint tenderness, effusion, or edema noted. NEUROLOGICAL: Awake and alert. Cranial nerves II through XII intact. Motor and sensory grossly within normal limits. Five out of 5 muscle strength in all muscle groups. Normal speech. Laboratory Laboratory Tests Test 12/19/17 10:15 12/19/17 11:53 12/19/17 13:20 White Blood Count 13.6 Red Blood Count 4.90 Hemoglobin 14.7 Hematocrit 43.6 Mean Corpuscular Volume 89.0 Mean Corpuscular Hemoglobin 30.0 Mean Corpuscular Hemoglobin Concent 33.8 Red Cell Distribution Width 14.0 Platelet Count 164 Mean Platelet Volume 9.4 Neutrophils (%) (Auto) 82.3 Lymphocytes (%) (Auto) 11.2 Monocytes (%) (Auto) 5.9 Eosinophils (%) (Auto) 0.2 Basophils (%) (Auto) 0.4 Neutrophils # (Auto) 11.2 Lymphocytes # (Auto) 1.5 Monocytes # (Auto) 0.8 Eosinophils # (Auto) 0.0 Basophils # (Auto) 0.1 CBC Comment DIFF FINAL Differential Comment Prothrombin Time 11.1 Prothromb Time International Ratio 1.1 Activated Partial Thromboplast Time 23.1 Blood Urea Nitrogen 23 Creatinine 1.01 Random Glucose 138 Total Protein 7.5 Albumin 3.9 Calcium Level 10.0 Magnesium Level 2.4 Alkaline Phosphatase 61 Aspartate Amino Transf (AST/SGOT) 27 Alanine Aminotransferase (ALT/SGPT) 20 Total Bilirubin 0.9 Sodium Level 138 Potassium Level 4.3 Chloride Level 104 Carbon Dioxide Level 20.9 Anion Gap 13 Estimat Glomerular Filtration Rate 53 Total Creatine Kinase 144 Creatine Kinase MB 2.6 Troponin I LESS THAN 0.02 Urine Color YELLOW Urine Turbidity CLEAR Urine pH 5.0 Urine Specific [place] 1.016 Urine Protein TRACE Urine Glucose (UA) NEG Urine Ketones NEG Urine Occult Blood NEG Urine Nitrite NEG Urine Bilirubin NEG Urine Urobilinogen 2.0 Urine Leukocyte Esterase NEG Urine RBC LESS THAN 1 Urine WBC 1 Urine Squamous Epithelial Cells 1 Urine Bacteria RARE Urine Hyaline Casts 2 Urine Mucus FEW Microscopic Urinalysis Comment CULT NOT INDICATED Lactic Acid Level 1.3 Result Diagram: 12/19/17 1015 12/19/17 1015 Imaging Last Impressions Chest X-Ray 12/19/17 1008 Signed Impressions: CONCLUSION: Status post CABG. Lungs are grossly clear. Femur X-Ray 12/19/17 0000 Signed Impressions: CONCLUSION: Atherosclerotic disease. No acute fracture. 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 Abnormal descending and sigmoid colon with wall thickening and adjacent hyp eremia. The distal transverse colon may be abnormal as well. Findings are diagn ostic of a colitis with inflammatory, infectious, or ischemic etiologies in the differential diagnosis. The distribution of the abnormality and vascular findi ngs raise suspicion for ischemic process. 2. Severe atherosclerotic disease with moderate atherosclerotic disease of the superior mesenteric artery and possible occlusion of the inferior mesenteric a rtery. Caprini VTE Risk Assessment Caprini VTE Risk Assessment: Mod/High Risk (score >= 2) Caprini Risk Assessment Model Point Value = 1 Point Value = 2 Point Value = 3 Point Value = 5 Age 41-60 Minor surgery BMI > 25 kg/m2 Swollen legs Varicose veins or History of unexplained or recurrent spontaneous Oral contraceptives or hormone replacement Sepsis (< 1 month) Serious lung disease, including pneumonia (< 1 month) Abnormal pulmonary function Acute myocardial infarction Congestive heart failure (< 1 month) History of inflammatory bowel disease Medical patient at bed rest Age 61-74 Arthroscopic surgery Major open surgery (> 45 min) Laparoscopic surgery (> 45 min) Malignancy Confined to bed (> 72 hours) Immobilizing plaster cast Central venous access Age >= 75 History of VTE Family history of VTE Factor V Leiden Prothrombin [id number] Lupus anticoagulant Anticardiolipin antibodies Elevated serum homocysteine Heparin-induced thrombocytopenia Other congenital or acquired thrombophilia Stroke (< 1 month) Elective arthroplasty Hip, pelvis, or leg fracture Acute spinal cord injury (< 1 month) Prophylaxis Regimen Total Risk Factor Score Risk Level Prophylaxis Regimen 0-1 Low Early ambulation 2 Moderate Order ONE of the following: *Sequential Compression Device (SCD) *Heparin 5000 units SQ BID 3-4 Higher Order ONE of the following medications: *Heparin 5000 units SQ TID *Enoxaparin/Lovenox 40 mg SQ daily (WT < 150 kg, CrCl > 30 mL/min) *Enoxaparin/Lovenox 30 mg SQ daily (WT < 150 kg, CrCl > 10-29 mL/min) *Enoxaparin/Lovenox 30 mg SQ BID (WT < 150 kg, CrCl > 30 mL/min) AND/OR *Sequential Compression Device (SCD) 5 or more Highest Order ONE of the following medications: *Heparin 5000 units SQ TID (Preferred with Epidurals) *Enoxaparin/Lovenox 40 mg SQ daily (WT < 150 kg, CrCl > 30 mL/min) *Enoxaparin/Lovenox 30 mg SQ daily (WT < 150 kg, CrCl > 10-29 mL/min) *Enoxaparin/Lovenox 30 mg SQ BID (WT < 150 kg, CrCl > 30 mL/min) AND *Sequential Compression Device (SCD) Assessment and Plan Assessment and Plan Abdominal pain/ BRBPR/ Colitis The pt endorses lower abdominal pain and BRBPR. CT of the abdomen shows: Abnormal descending and sigmoid colon with wall thickening and adjacent hyperemia; The distal transverse colon may be abnormal as well; Findings are diagnostic of a colitis with inflammatory, infectious, or ischemic etiologies in the differential; Severe atherosclerotic disease with moderate atherosclerotic disease of the superior mesenteric artery and inferior mesenteric artery. - IV PPI BID. - GI consult requested. - hold ASA. - IVFs. - clear liquid diet. - continue Carafate. - continue IV Cipro and Flagyl. - check C diff PCR, stool culture. Near syncope/ Bradycardia S/t straining with bowel movements. She also has a history of bradycardia and is due for a pacemaker placement by Dr. Yoder on Monday. EKG with junctional bradycardia. - telemetry. - IV fluids. - treatment as above. - cardiology consult if needed. DM On glipizide as an outpt. - hold glipizide. - insulin sliding scale. PPx: SCDs Code Status Full Discussed Condition With Pt, Pt's son, nurse, Vivien Jose Physician Certification 2 Midnight Certification Type: Admission for Inpatient Services Order for Inpatient Services The services are ordered in accordance with Medicare regulations or non- Medicare payer requirements, as applicable. In the case of services not specified as inpatient-only, they are appropriately provided as inpatient services in accordance with the 2-midnight benchmark. Estimated LOS (days): 2 days is the estimated time the patient will need to remain in the hospital, assuming treatment plan goals are met and no additional complications. Post-Hospital Plan: Home Jim Cerda DO Dec 19, 2017 16:27
[2017-12-19] MEDS ORDERED: MORPHINE SULFATE 2 MG/ML SYRINGE IV PUSH PRN (17:00)
[2017-12-19] MEDS: INSULIN ASPART SUPPLEMENTAL SCALE SQ SCH ×2 (17:00→21:00)
[2017-12-19] MEDS ORDERED: METOCLOPRAMIDE HCL 10 MG/2 ML VIAL IV PUSH PRN (17:00)
--- NOTE | 2017-12-19 17:18 | EKG ---
Date Performed: 12/19/2017 Time Performed: 10:25:29 PTAGE: 77 years EKG: SINUS BRADYCARDIA NONSPECIFIC ST & T-WAVE ABNORMALITY ABNORMAL RHYTHM ECG PREVIOUS TRACING : 01/17/2017 12.56 Since the previous tracing, no significant change noted DOCTOR: Shy Song Interpretating Date/Time 12/19/2017 17:17:22
[2017-12-19] MEDS: SUCRALFATE 1 GM TAB PO SCH (18:04)
[2017-12-19] MEDS: SODIUM CHLORIDE 0.9% FLUSH 10 ML FLUSH IV FLUSH SCH (20:24)
[2017-12-19] MEDS: PANTOPRAZOLE SODIUM 40 MG VIAL IV PUSH SCH (20:24)
[2017-12-19] MEDS: metroNIDAZOLE 500 MG INJ 100 ML IV SCH (22:12)
[2017-12-20] VITALS (10 sets, daily range): BP systolic 127–185; BP diastolic 61–78; PULSE 46–52; RESP 16–20; TEMP 97.5–98.8; O2SAT 95–98
[2017-12-20] MEDS: CIPROFLOXACIN 400 MG PREMIX 200 ML IV SCH ×2 (03:14→16:38)
[2017-12-20] MEDS: SODIUM CHLOR 0.9% 1000 ML INJ 1,000 ML IV SCH (03:14)
[2017-12-20] MEDS: metroNIDAZOLE 500 MG INJ 100 ML IV SCH ×3 (06:17→22:20)
[2017-12-20 07:18] LABS: AUTOMATED NEUTROPHIL # 5.4 TH/MM3 (1.8-7.7); BASOPHIL % 0.3 % (0.0-2.0); EOSINOPHIL % 0.1 % (0.0-4.0); HEMATOCRIT 35.6 % (35.0-46.0); HEMOGLOBIN 12.3 GM/DL (11.6-15.3); LYMPHOCYTE # 1.8 TH/MM3 (1.0-4.8); MEAN CELL VOLUME 87.7 FL (80.0-100.0); MEAN CORPUSCULAR HEMOGLOBIN 30.4 PG (27.0-34.0); MEAN CORPUSCULAR HGB CONC 34.7 % (32.0-36.0); MEAN PLATELET VOLUME 9.4 FL (7.0-11.0); MONO % 7.6 % (0.0-8.0); MONOCYTE # 0.6 TH/MM3 (0-0.9); PLATELET COUNT 125 TH/MM3 (150-450); RED BLOOD COUNT 4.06 MIL/MM3 (4.00-5.30); WHITE BLOOD COUNT 7.8 TH/MM3 (4.0-11.0)
[2017-12-20 07:48] LABS: ALBUMIN 3.2 GM/DL (3.4-5.0); ALKALINE PHOSPHATASE 46 U/L (45-117); ALT (GPT) 18 U/L (10-53); AST (GOT) 21 U/L (15-37); BICARBONATE 22.5 MEQ/L (21.0-32.0); BLOOD UREA NITROGEN 15 MG/DL (7-18); CALCIUM 8.5 MG/DL (8.5-10.1); CHLORIDE 109 MEQ/L (98-107); CREATININE 0.72 MG/DL (0.50-1.00); GLOMERULAR FILTRATION RATE 78 ML/MIN (>89); GLUCOSE,RANDOM 104 MG/DL (74-106); SODIUM (NA) 141 MEQ/L (136-145); TOTAL BILIRUBIN ADULT 0.8 MG/DL (0.2-1.0); TOTAL PROTEIN 5.8 GM/DL (6.4-8.2)
[2017-12-20] MEDS: INSULIN ASPART SUPPLEMENTAL SCALE SQ SCH ×4 (08:00→21:00)
[2017-12-20] MEDS: SODIUM CHLORIDE 0.9% FLUSH 10 ML FLUSH IV FLUSH SCH ×2 (09:00→21:36)
[2017-12-20] MEDS ORDERED: ASPIRIN 81 MG CHEW TAB CHEW SCH (09:00)
[2017-12-20] MEDS: PANTOPRAZOLE SODIUM 40 MG VIAL IV PUSH SCH ×2 (09:38→21:33)
[2017-12-20] MEDS: SUCRALFATE 1 GM TAB PO SCH ×3 (09:39→18:40)
[2017-12-20] MEDS: LISINOPRIL 10 MG TAB PO SCH (09:39)
[2017-12-20] MEDS: GABAPENTIN 100 MG CAP PO SCH (09:39)
--- NOTE | 2017-12-20 09:53 | PD.CONS ---
HPI History of Present Illness This is a 77 year old F with PMH significant for bradycardia, CAD S/P CABG, DM, HTN, gastritis who presented to the ER yesterday with complaints of abdominal cramping and constipation. Pt has chronic constipation and states it is not unusual for her to have one BM a week. She takes multiple OTC remedies including Senokot, suppositories, enemas, and prune juice. She denies any BMs prior to admission, has since had multiple bloody BMs that began while she was in the hospital. Denies history of GIB, has had occasional small amount of BRB on the toilet paper when she wipes after straining to have a BM. Also complaining of some nausea yesterday prior to having a BM, denies emesis. Abdominal pain is lower, intermittent, described as cramping, has improved greatly since having BMs. Denies unintentional weight loss. Last EGD and colonoscopy were approximately 5 years ago and pt states gastritis and normal colon. She denies ETOH, smoking, NSAID use. Denies family history significant for colon cancer. Of note, pt has a schedule procedure with Dr. Yoder on Monday for pacemaker placement due to bradycardia. (Osiris Teague) PFSH Past Medical History Diabetes Hypertension CAD status post CABG 5 in 2004 Bradycardia Gastritis (Osiris Teague) Coded Allergies: No Known Allergies (Unverified Allergy, Unknown, 12/19/17) Family History CAD Cancer Social History The patient quit smoking in 2004. She does not drink alcohol. (Osiris Teague) Review of Systems Gastrointestinal: COMPLAINS OF: Abdominal pain, Bloody stools, Constipation, Nausea, DENIES: Black stools, Diarrhea, Vomiting, Difficulty Swallowing, Odynophagia, Swelling of Abdomen, Heartburn, Hematemesis (Osiris Teague) GI Exam Vitals I&O Vital Signs Date Time Temp Pulse Resp B/P (MAP) Pulse Ox O2 Delivery O2 Flow Rate FiO2 12/20/17 08:02 98.8 49 18 138/66 (90) 95 12/20/17 04:18 97.5 51 16 127/61 (83) 95 12/20/17 04:00 49 12/20/17 00:00 48 12/19/17 23:40 99.4 49 16 127/63 (84) 95 12/19/17 20:39 100.2 50 16 162/73 (102) 98 12/19/17 17:00 49 18 148/77 (100) 98 Room Air 12/19/17 13:36 62 18 149/86 (107) 98 Room Air 12/19/17 11:55 52 18 157/57 (90) 97 Room Air 12/19/17 10:13 18 99 Room Air 12/19/17 09:56 98.3 50 18 114/60 (78) 99 Room Air I/O 12/19/17 12/19/17 12/19/17 12/20/17 12/20/17 12/20/17 07:00 15:00 23:00 07:00 15:00 23:00 Intake Total 480 ml Balance 480 ml Intake Oral 480 ml # Voids 1 # Bowel Movements 2 Imaging Last Impressions Chest X-Ray 12/19/17 1008 Signed Impressions: CONCLUSION: Status post CABG. Lungs are grossly clear. Femur X-Ray 12/19/17 0000 Signed Impressions: CONCLUSION: Atherosclerotic disease. No acute fracture. 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 Abnormal descending and sigmoid colon with wall thickening and adjacent hyp eremia. The distal transverse colon may be abnormal as well. Findings are diagn ostic of a colitis with inflammatory, infectious, or ischemic etiologies in the differential diagnosis. The distribution of the abnormality and vascular findi ngs raise suspicion for ischemic process. 2. Severe atherosclerotic disease with moderate atherosclerotic disease of the superior mesenteric artery and possible occlusion of the inferior mesenteric a rtery. Laboratory Test 12/19/17 10:15 12/19/17 11:53 12/19/17 13:20 12/20/17 06:00 White Blood Count 13.6 TH/MM3 7.8 TH/MM3 Red Blood Count 4.90 MIL/MM3 4.06 MIL/MM3 Hemoglobin 14.7 GM/DL 12.3 GM/DL Hematocrit 43.6 % 35.6 % Mean Corpuscular Volume 89.0 FL 87.7 FL Mean Corpuscular Hemoglobin 30.0 PG 30.4 PG Mean Corpuscular Hemoglobin Concent 33.8 % 34.7 % Red Cell Distribution Width 14.0 % 14.0 % Platelet Count 164 TH/MM3 125 TH/MM3 Mean Platelet Volume 9.4 FL 9.4 FL Neutrophils (%) (Auto) 82.3 % 69.0 % Lymphocytes (%) (Auto) 11.2 % 23.0 % Monocytes (%) (Auto) 5.9 % 7.6 % Eosinophils (%) (Auto) 0.2 % 0.1 % Basophils (%) (Auto) 0.4 % 0.3 % Neutrophils # (Auto) 11.2 TH/MM3 5.4 TH/MM3 Lymphocytes # (Auto) 1.5 TH/MM3 1.8 TH/MM3 Monocytes # (Auto) 0.8 TH/MM3 0.6 TH/MM3 Eosinophils # (Auto) 0.0 TH/MM3 0.0 TH/MM3 Basophils # (Auto) 0.1 TH/MM3 0.0 TH/MM3 CBC Comment DIFF FINAL DIFF FINAL Differential Comment Prothrombin Time 11.1 SEC Prothromb Time International Ratio 1.1 RATIO Activated Partial Thromboplast Time 23.1 SEC Blood Urea Nitrogen 23 MG/DL 15 MG/DL Creatinine 1.01 MG/DL 0.72 MG/DL Random Glucose 138 MG/DL 104 MG/DL Total Protein 7.5 GM/DL 5.8 GM/DL Albumin 3.9 GM/DL 3.2 GM/DL Calcium Level 10.0 MG/DL 8.5 MG/DL Magnesium Level 2.4 MG/DL Alkaline Phosphatase 61 U/L 46 U/L Aspartate Amino Transf (AST/SGOT) 27 U/L 21 U/L Alanine Aminotransferase (ALT/SGPT) 20 U/L 18 U/L Total Bilirubin 0.9 MG/DL 0.8 MG/DL Sodium Level 138 MEQ/L 141 MEQ/L Potassium Level 4.3 MEQ/L 3.6 MEQ/L Chloride Level 104 MEQ/L 109 MEQ/L Carbon Dioxide Level 20.9 MEQ/L 22.5 MEQ/L Anion Gap 13 MEQ/L 10 MEQ/L Estimat Glomerular Filtration Rate 53 ML/MIN 78 ML/MIN Total Creatine Kinase 144 U/L Creatine Kinase MB 2.6 NG/ML Troponin I LESS THAN 0.02 NG/ML Urine Color YELLOW Urine Turbidity CLEAR Urine pH 5.0 Urine Specific [place] 1.016 Urine Protein TRACE mg/dL Urine Glucose (UA) NEG mg/dL Urine Ketones NEG mg/dL Urine Occult Blood NEG Urine Nitrite NEG Urine Bilirubin NEG Urine Urobilinogen 2.0 MG/DL Urine Leukocyte Esterase NEG Urine RBC LESS THAN 1 /hpf Urine WBC 1 /hpf Urine Squamous Epithelial Cells 1 /hpf Urine Bacteria RARE /hpf Urine Hyaline Casts 2 /lpf Urine Mucus FEW /lpf Microscopic Urinalysis Comment CULT NOT INDICATED Lactic Acid Level 1.3 mmol/L Lipase 47 U/L Physical Examination HEENT: Normocephalic; atraumatic CHEST: Even/unlabored CARDIAC: Sinus bradycardia (+) murmur ABDOMEN: Soft, nondistended, mild lower abdominal tenderness, bowel sounds active EXTREMITIES: No clubbing, cyanosis, or edema. SKIN: Normal; no rash; no jaundice. SWEAT BAND SEPARATOR: Alert and oriented times three. (Osiris Teague) Assessment and Plan Plan Assessment: - Rectal bleeding- Pt was having constipation and lower abdominal cramping, intermittent, has improved greatly after multiple BMs. Long history of constipation and takes multiple OTC remedies including Senokot, enemas, suppositories, and prune juice. No BMs prior to admission, while in the hospital has had multiple bloody BMs. Some nausea, resolved since having BMs. Denies history of GIB, does not take blood thinners. Denies ETOH, smoking, NSAID use. Last EGD and colonoscopy 5-6 years ago and states findings of gastritis and normal colonoscopy. CT abdomen and pelvis W IV contrast --> Abnormal descending and sigmoid colon with wall thickening and adjacent hyperemia. The distal transverse colon may be abnormal as well. Severe atherosclerotic disease but the superior mesenteric artery appears patent without visible embolism. The VANESSA may be occluded. Discussed with Dr. Yoder, pts electrical prospecting engineer on the phone, she is currently scheduled for a pacemaker on Monday for symptomatic bradycardia, I called him regarding clearance for colonoscopy and anesthesia, per Dr. Yoder OK for colonoscopy tomorrow Plant: Colonoscopy tomorrow Obtain consent Clear liquids today Mag Citrate prep NPO after MN Monitor H/H Transfuse as needed Stool studies Further recommendations based on findings of above and clinical course Pt has been seen and examined by myself and Dr. Schuster and this note is written on his behalf (Osiris Teague) Physician Comments Seen with Osiris plan as above. Agree with above plan. Consent for Colonoscopy tomorrow and start bowel prep. Thank you for the consult (Toyin Schuster MD) Osiris Teague Dec 20, 2017 09:53 Toyin Schuster MD Dec 20, 2017 14:05
--- NOTE | 2017-12-20 10:45 | HHI.PR ---
Subjective Remarks The patient says that she has been having bloody bowel movements still. She would like somebody to call her medical scheduler and update him. Her son was at the bedside. The patient says that her abdominal pain has resolved. She says that she is tolerating the broth. She does not want to undergo a colonoscopy. Objective Vitals Vital Signs Date Time Temp Pulse Resp B/P (MAP) Pulse Ox O2 Delivery O2 Flow Rate FiO2 12/20/17 08:02 98.8 49 18 138/66 (90) 95 12/20/17 04:18 97.5 51 16 127/61 (83) 95 12/20/17 04:00 49 12/20/17 00:00 48 12/19/17 23:40 99.4 49 16 127/63 (84) 95 12/19/17 20:39 100.2 50 16 162/73 (102) 98 12/19/17 17:00 49 18 148/77 (100) 98 Room Air 12/19/17 13:36 62 18 149/86 (107) 98 Room Air 12/19/17 11:55 52 18 157/57 (90) 97 Room Air I/O 12/19/17 12/19/17 12/19/17 12/20/17 12/20/17 12/20/17 07:00 15:00 23:00 07:00 15:00 23:00 Intake Total 480 ml Balance 480 ml Intake Oral 480 ml # Voids 1 # Bowel Movements 2 Result Diagram: 12/20/17 0600 12/20/17 0600 Imaging Last Impressions Chest X-Ray 12/19/17 1008 Signed Impressions: CONCLUSION: Status post CABG. Lungs are grossly clear. Femur X-Ray 12/19/17 0000 Signed Impressions: CONCLUSION: Atherosclerotic disease. No acute fracture. 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 Abnormal descending and sigmoid colon with wall thickening and adjacent hyp eremia. The distal transverse colon may be abnormal as well. Findings are diagn ostic of a colitis with inflammatory, infectious, or ischemic etiologies in the differential diagnosis. The distribution of the abnormality and vascular findi ngs raise suspicion for ischemic process. 2. Severe atherosclerotic disease with moderate atherosclerotic disease of the superior mesenteric artery and possible occlusion of the inferior mesenteric a rtery. Objective Remarks Abdominal pain/ BRBPR/ Colitis The pt endorses lower abdominal pain and BRBPR. CT of the abdomen shows: Abnormal descending and sigmoid colon with wall thickening and adjacent hyperemia; The distal transverse colon may be abnormal as well; Findings are diagnostic of a colitis with inflammatory, infectious, or ischemic etiologies in the differential; Severe atherosclerotic disease with moderate atherosclerotic disease of the superior mesenteric artery and inferior mesenteric artery. GI consult appreciated. - IV PPI BID. - GI planning on colonoscopy. - hold ASA. - IVFs. - clear liquid diet. - continue Carafate. - continue IV Cipro and Flagyl. - check C diff PCR, stool culture. Near syncope/ Bradycardia S/t straining with bowel movements. She also has a history of bradycardia and is due for a pacemaker placement by Dr. Yoder on Monday. EKG with junctional bradycardia. Discussed with Dr. Yoder, who says that pacemaker will be postponed. HR has been in the high 40s, low 50s. - telemetry. - IV fluids. - treatment as above. DM On glipizide as an outpt. - hold glipizide. - insulin sliding scale. PPx: SCDs A/P Assessment and Plan Abdominal pain/ BRBPR/ Colitis The pt endorses lower abdominal pain and BRBPR. CT of the abdomen shows: Abnormal descending and sigmoid colon with wall thickening and adjacent hyperemia; The distal transverse colon may be abnormal as well; Findings are diagnostic of a colitis with inflammatory, infectious, or ischemic etiologies in the differential; Severe atherosclerotic disease with moderate atherosclerotic disease of the superior mesenteric artery and inferior mesenteric artery. - IV PPI BID. - GI consult requested. - hold ASA. - IVFs. - clear liquid diet. - continue Carafate. - continue IV Cipro and Flagyl. - check C diff PCR, stool culture. Near syncope/ Bradycardia S/t straining with bowel movements. She also has a history of bradycardia and is due for a pacemaker placement by Dr. Yoder on Monday. EKG with junctional bradycardia. - telemetry. - IV fluids. - treatment as above. - cardiology consult if needed. DM On glipizide as an outpt. - hold glipizide. - insulin sliding scale. PPx: SCDs Jim Cerda DO Dec 20, 2017 10:45
[2017-12-20] MEDS ORDERED: POTASSIUM CHLORIDE 20 MEQ CONTROLLED RELEASE TAB PO ONE (12:00)
[2017-12-20] MEDS ORDERED: SODIUM CHLORID 0.9% 500 ML IV PRN (14:00)
[2017-12-20] MEDS ORDERED: LACTATED RINGER'S 1000 ML IV PRN (14:00)
[2017-12-20] MEDS ORDERED: METOPROLOL TARTRATE 25 MG TAB PO PRN (14:00)
[2017-12-20] MEDS ORDERED: CHLORHEXIDINE GLUCONATE 2 % 1 PACK (2 CLOTHS) TOPICAL PRN (14:00)
[2017-12-20] MEDS ORDERED: POVIDONE IODINE 5% (ANTISEPSIS KIT) 4 APPLICATIONS EACH NARE PRN (14:00)
[2017-12-20] MEDS ORDERED: MAGNESIUM CITRATE SOLN 300 ML BTL PO ONE ×2 (16:00→18:00)
[2017-12-21] VITALS (10 sets, daily range): BP systolic 115–167; BP diastolic 51–77; PULSE 40–58; RESP 16–18; TEMP 97.7–98.8; O2SAT 96–98
[2017-12-21] MEDS ORDERED: ENALAPRILAT 1.25 MG/ML VIAL IV PUSH PRN (00:45)
[2017-12-21] MEDS: CIPROFLOXACIN 400 MG PREMIX 200 ML IV SCH ×2 (03:17→15:00)
[2017-12-21 05:31] LABS: HEMOGLOBIN 12.2 GM/DL (11.6-15.3); MEAN CELL VOLUME 88.3 FL (80.0-100.0); MEAN CORPUSCULAR HEMOGLOBIN 30.8 PG (27.0-34.0); MEAN CORPUSCULAR HGB CONC 34.8 % (32.0-36.0); MEAN PLATELET VOLUME 9.2 FL (7.0-11.0); PLATELET COUNT 117 TH/MM3 (150-450); RED BLOOD COUNT 3.96 MIL/MM3 (4.00-5.30); RED CELL DISTRIBUTION WIDTH 13.7 % (11.6-17.2)
[2017-12-21 05:53] LABS: BICARBONATE 24.2 MEQ/L (21.0-32.0); CALCIUM 8.8 MG/DL (8.5-10.1); CREATININE 0.66 MG/DL (0.50-1.00); MAGNESIUM 2.3 MG/DL (1.5-2.5)
[2017-12-21] MEDS: metroNIDAZOLE 500 MG INJ 100 ML IV SCH ×3 (05:58→23:07)
[2017-12-21] MEDS: INSULIN ASPART SUPPLEMENTAL SCALE SQ SCH ×2 (08:00→12:00)
[2017-12-21] MEDS: SUCRALFATE 1 GM TAB PO SCH ×2 (09:00→13:00)
[2017-12-21] MEDS: PANTOPRAZOLE SODIUM 40 MG VIAL IV PUSH SCH ×2 (10:44→21:06)
[2017-12-21] MEDS: LISINOPRIL 10 MG TAB PO SCH (10:44)
[2017-12-21] MEDS: GABAPENTIN 100 MG CAP PO SCH (10:45)
[2017-12-21] MEDS: SODIUM CHLORIDE 0.9% FLUSH 10 ML FLUSH IV FLUSH SCH ×2 (11:03→21:06)
[2017-12-21] MEDS ORDERED: GLYCOPYRROLATE 1 MG/5 ML SYRINGE IV PUSH ONE (12:00)
[2017-12-21] MEDS ORDERED: LIDOCAINE HCL 1% PF 5 ML SYRINGE OTHER ONE (12:00)
[2017-12-21] MEDS ORDERED: PROPOFOL 200 MG/20 ML AMP IV ONE (12:00)
--- NOTE | 2017-12-21 14:58 | GIPROC ---
[facility] [address] [facility]. [facility], [id number] COLONOSCOPY PROCEDURE REPORT EXAM DATE: 12/21/2017 PATIENT NAME: Stella Jorge MR #: [id number] BIRTHDATE: 1940 ENDOSCOPIST: Toyin Schuster MD ORDER #: [id number] TOOL ROOM SUPERVISOR: Diego Talavera and Devika Diallo STATUS: inpatient INDICATIONS: The patient is a 77 yr old female here for a colonoscopy due to rectal bleeding PROCEDURE PERFORMED: Colonoscopy with biopsy MEDICATIONS: None and Per Anesthesia. PREP QUALITY: fair PREP TYPE:GoLytely ESTIMATED BLOOD LOSS: None CONSENT: The patient understands the risks and benefits of the procedure and understands that these risks include, but are not limited to: sedation, allergic reaction, infection, perforation and/or bleeding. Alternative means of evaluation and treatment include, among others: physical exam, x-rays, and/or surgical intervention. The patient elects to proceed with this endoscopic procedure. medical equipment was checked for proper function. Hand hygiene and appropriate measures for infection prevention was taken. After the risks, benefits and alternatives of the procedure were thoroughly explained, Informed consent was verified, confirmed and timeout was successfully executed by the treatment team. A digital exam revealed no abnormalities of the rectum The New [id number] (Std Gastro) endoscope was introduced through the anus and advanced to the cecum, which was identified by both the appendix and ileocecal valve. The instrument was then slowly withdrawn as the colon was fully examined. COLON FINDINGS: A large sized circumferential diffuse patch of colitis was found in the sigmoid colon. The mucosa was oozing blood, edematous, congested, erythematous and had superficial ulcers and erosions. Multiple biopsies were performed using cold forceps. The mucosa appeared normal and in the terminal ileum. Retroflexed views revealed no abnormalities The scope was then completely withdrawn from the patient and the procedure terminated. PROCEDURE WITHDRAWAL TIME:10minutes ADVERSE EVENTS: There were no complications. IMPRESSIONS: 1. Large sized circumferential diffuse colitis was found in the sigmoid colon; The mucosa was oozing blood, edematous, congested, erythematous and had superficial ulcers and erosions; multiple biopsies were performed using cold forceps 2. Normal Terminal ileum RECOMMENDATIONS: Await biopsy results. Biopsy results will not be ready for 7-10 days. If you don't hear from us in two weeks, call our office for results. RECALL: NONE Toyin Schuster MD eSigned: Toyin Schuster MD 12/21/2017 2:57 PM cc:
[2017-12-21] MEDS ORDERED: POTASSIUM CHLORIDE 20 MEQ CONTROLLED RELEASE TAB PO ONE (16:15)
[2017-12-21 17:15] LABS: HEMATOCRIT 36.4 % (35.0-46.0); HEMOGLOBIN 12.4 GM/DL (11.6-15.3)
--- NOTE | 2017-12-21 17:15 | HHI.PR ---
Subjective Remarks The pt had her colonoscopy. She wanted to go home. She said she wanted regular food. Her son was at the bedside. Discussed with nursing. Objective Vitals Vital Signs Date Time Temp Pulse Resp B/P (MAP) Pulse Ox O2 Delivery O2 Flow Rate FiO2 12/21/17 15:02 98.2 50 16 154/63 (93) 98 12/21/17 12:04 44 12/21/17 08:40 98.7 44 16 145/51 (82) 96 12/21/17 07:43 45 12/21/17 04:14 98.4 43 16 115/57 (76) 96 12/21/17 04:00 40 12/21/17 00:00 50 12/20/17 23:43 98.8 51 16 185/72 (109) 96 12/20/17 19:59 98.8 46 16 157/70 (99) 97 12/20/17 18:34 98.4 51 18 182/78 (112) 98 I/O 12/20/17 12/20/17 12/20/17 12/21/17 12/21/17 12/21/17 07:00 15:00 23:00 07:00 15:00 23:00 Intake Total 480 ml 240 ml 100 ml Balance 480 ml 240 ml 100 ml Intake Oral 480 ml 240 ml Other 100 ml # Voids 1 # Bowel Movements 9 Result Diagram: 12/21/17 0440 12/21/17 0440 Imaging Last Impressions Chest X-Ray 12/19/17 1008 Signed Impressions: CONCLUSION: Status post CABG. Lungs are grossly clear. Femur X-Ray 12/19/17 0000 Signed Impressions: CONCLUSION: Atherosclerotic disease. No acute fracture. 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 Abnormal descending and sigmoid colon with wall thickening and adjacent hyp eremia. The distal transverse colon may be abnormal as well. Findings are diagn ostic of a colitis with inflammatory, infectious, or ischemic etiologies in the differential diagnosis. The distribution of the abnormality and vascular findi ngs raise suspicion for ischemic process. 2. Severe atherosclerotic disease with moderate atherosclerotic disease of the superior mesenteric artery and possible occlusion of the inferior mesenteric a rtery. Objective Remarks Abdominal pain/ BRBPR/ Colitis The pt endorses lower abdominal pain and BRBPR. CT of the abdomen shows: Abnormal descending and sigmoid colon with wall thickening and adjacent hyperemia; The distal transverse colon may be abnormal as well; Findings are diagnostic of a colitis with inflammatory, infectious, or ischemic etiologies in the differential; Severe atherosclerotic disease with moderate atherosclerotic disease of the superior mesenteric artery and inferior mesenteric artery. GI consult appreciated. Colonoscopy with - IV PPI BID. - GI planning on colonoscopy. - hold ASA. - IVFs. - clear liquid diet. - continue Carafate. - continue IV Cipro and Flagyl. - check C diff PCR, stool culture. Near syncope/ Bradycardia S/t straining with bowel movements. She also has a history of bradycardia and is due for a pacemaker placement by Dr. Yoder on Monday. EKG with junctional bradycardia. Discussed with Dr. Yoder, who says that pacemaker will be postponed. HR has been in the high 40s, low 50s. - telemetry. - IV fluids. - treatment as above. DM On glipizide as an outpt. - hold glipizide. - insulin sliding scale. PPx: SCDs A/P Assessment and Plan Abdominal pain/ BRBPR/ Colitis The pt endorses lower abdominal pain and BRBPR. CT of the abdomen shows: Abnormal descending and sigmoid colon with wall thickening and adjacent hyperemia; The distal transverse colon may be abnormal as well; Findings are diagnostic of a colitis with inflammatory, infectious, or ischemic etiologies in the differential; Severe atherosclerotic disease with moderate atherosclerotic disease of the superior mesenteric artery and inferior mesenteric artery. GI consult appreciated. Colonoscopy 12/21: Large sized circumferential diffuse colitis was found in the sigmoid colon; The mucosa was oozing blood, edematous, congested, erythematous and had superficial ulcers and erosions; Normal Terminal ileum. - IV PPI BID. - GI following. - holding ASA. - IVFs. - diet per GI. - continue Carafate. - continue IV Cipro and Flagyl. - follow pathology. Near syncope/ Bradycardia S/t straining with bowel movements. She also has a history of bradycardia and is due for a pacemaker placement by Dr. Yoder on Monday. EKG with junctional bradycardia. - telemetry. - IV fluids. - treatment as above. - discussed with cardiology, pacemaker placement will be deferred at this time. DM On glipizide as an outpt. - hold glipizide. - follow BMP. Hypokalemia S/t decreased PO intake. - replete and monitor. PPx: Jim Lu DO Dec 21, 2017 17:15
[2017-12-21 17:16] LABS: HEMATOCRIT 36.6 % (35.0-46.0); HEMOGLOBIN 12.5 GM/DL (11.6-15.3)
[2017-12-21] MEDS: SUCRALFATE 1 GM/10 ML CUP PO SCH ×2 (17:48→21:06)
[2017-12-22 03:42] VITALS: BP 129/48; PULSE 40; RESP 16; TEMP 98.1; O2SAT 97
[2017-12-22] MEDS: CIPROFLOXACIN 400 MG PREMIX 200 ML IV SCH ×2 (03:46→14:46)
[2017-12-22 05:26] LABS: HEMATOCRIT 35.3 % (35.0-46.0); HEMOGLOBIN 12.1 GM/DL (11.6-15.3)
[2017-12-22] MEDS: metroNIDAZOLE 500 MG INJ 100 ML IV SCH ×3 (05:40→22:00)
[2017-12-22 05:42] LABS: BICARBONATE 24.7 MEQ/L (21.0-32.0); CALCIUM 8.6 MG/DL (8.5-10.1); CREATININE 0.68 MG/DL (0.50-1.00); MAGNESIUM 2.1 MG/DL (1.5-2.5)
[2017-12-22 07:23] VITALS: BP 140/59; PULSE 41; RESP 18; TEMP 98.3; O2SAT 98
[2017-12-22 08:00] VITALS: PULSE 46
[2017-12-22] MEDS: SUCRALFATE 1 GM/10 ML CUP PO SCH ×4 (08:00→21:54)
[2017-12-22] MEDS: GABAPENTIN 100 MG CAP PO SCH (09:15)
[2017-12-22] MEDS: PANTOPRAZOLE SODIUM 40 MG VIAL IV PUSH SCH ×2 (09:16→21:57)
[2017-12-22] MEDS: LISINOPRIL 10 MG TAB PO SCH (09:16)
[2017-12-22] MEDS: SODIUM CHLORIDE 0.9% FLUSH 10 ML FLUSH IV FLUSH SCH ×2 (09:16→21:57)
[2017-12-22 11:35] VITALS: BP 146/64; PULSE 44; RESP 18; TEMP 99.2; O2SAT 97
[2017-12-22] MEDS ORDERED: POTASSIUM CHLORIDE 20 MEQ CONTROLLED RELEASE TAB PO ONE (14:15)
--- NOTE | 2017-12-22 14:25 | HHI.GIFU ---
Subjective Remarks Patient is resting in the bed and sitting on side of the bed Denies any nausea vomiting abdominal pain diarrhea or constipation Taking full liquids and clear liquids with nutritional supplements well. Does not like hospital food Afebrile Status post colonoscopy on 12/21/2017 (Jenna Bolton) Objective Vitals I&O Vital Signs Date Time Temp Pulse Resp B/P (MAP) Pulse Ox O2 Delivery O2 Flow Rate FiO2 12/22/17 11:35 99.2 44 18 146/64 (91) 97 12/22/17 08:00 46 12/22/17 07:23 98.3 41 18 140/59 (86) 98 12/22/17 03:59 12/22/17 03:42 98.1 40 16 129/48 (75) 97 12/21/17 23:01 98.8 50 16 167/77 (107) 97 12/21/17 19:45 98.2 51 16 138/60 (86) 98 12/21/17 17:31 97.7 46 18 161/56 (91) 96 12/21/17 17:29 58 12/21/17 15:02 98.2 50 16 154/63 (93) 98 I/O 12/21/17 12/21/17 12/21/17 12/22/17 12/22/17 12/22/17 07:00 15:00 23:00 07:00 15:00 23:00 Intake Total 240 ml 100 ml 240 ml 200 ml Balance 240 ml 100 ml 240 ml 200 ml Intake Oral 240 ml 240 ml 200 ml Other 100 ml # Voids 2 2 # Bowel Movements 9 1 Laboratory Laboratory Tests Test 12/21/17 16:50 12/21/17 16:53 12/22/17 04:30 Hemoglobin 12.4 12.5 12.1 Hematocrit 36.4 36.6 35.3 Blood Urea Nitrogen 8 Creatinine 0.68 Random Glucose 116 Calcium Level 8.6 Magnesium Level 2.1 Sodium Level 143 Potassium Level 3.6 Chloride Level 108 Carbon Dioxide Level 24.7 Anion Gap 10 Estimat Glomerular Filtration Rate 83 Date/Time Source Procedure Growth Status 12/20/17 09:30 Stool Stool - Final NO ENTERIC PATHOGENS DETECTED BY PCR... Complete Imaging Last Impressions Chest X-Ray 12/19/17 1008 Signed Impressions: CONCLUSION: Status post CABG. Lungs are grossly clear. Femur X-Ray 12/19/17 Signed Impressions: CONCLUSION: Atherosclerotic disease. No acute fracture. 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 Abnormal descending and sigmoid colon with wall thickening and adjacent hyp eremia. The distal transverse colon may be abnormal as well. Findings are diagn ostic of a colitis with inflammatory, infectious, or ischemic etiologies in the differential diagnosis. The distribution of the abnormality and vascular findi ngs raise suspicion for ischemic process. 2. Severe atherosclerotic disease with moderate atherosclerotic disease of the superior mesenteric artery and possible occlusion of the inferior mesenteric a rtery. Physical Exam HEENT: Slim normocephalic; atraumatic. NECK: Neck is supple CHEST: Chest is clear to auscultation and percussion. CARDIAC: Regular rate and rhythm ABDOMEN: Soft, nondistended, nontender; no hepatosplenomegaly; bowel sounds are present in all four quadrants. EXTREMITIES: No edema. SKIN: Normal; no rash; no jaundice. CENTRAL STERILE TECHNICIAN: No focal deficits; alert and oriented times three., Mild anxiety (Jenna Bolton) Assessment and Plan Plan Assessment: - Rectal bleeding- Pt was having constipation and lower abdominal cramping, intermittent, has improved greatly after multiple BMs. Long history of constipation and takes multiple OTC remedies including Senokot, enemas, suppositories, and prune juice. No BMs prior to admission, while in the hospital has had multiple bloody BMs. Some nausea, resolved since having BMs. Denies history of GIB, does not take blood thinners. Denies ETOH, smoking, NSAID use. Last EGD and colonoscopy 5-6 years ago and states findings of gastritis and normal colonoscopy. CT abdomen and pelvis W IV contrast --> Abnormal descending and sigmoid colon with wall thickening and adjacent hyperemia. The distal transverse colon may be abnormal as well. Severe atherosclerotic disease but the superior mesenteric artery appears patent without visible embolism. The VANESSA may be occluded. Discussed with Dr. 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 Yoder OK for colonoscopy tomorrow 12/22/2017 patient is resting in the bed very anxious to go home. Drinking and tolerating full liquids including nutritional supplements without any nausea or vomiting. EGD done on 12/21/2017, findings include large sized circumferential diffuse colitis , sigmoid colon; The mucosa was oozing blood, edematous, congested, erythematous with superficial ulcers and erosions; multiple biopsies performed. Normal Terminal ileum. Current hemoglobin 12.1 no obvious bleeding. C. difficile negative. Stool studies negative for C. difficile and no enteric pathogens. Patient is requesting to go home and states that she is not transitioning to a regular room. Needs to continue for now IV Flagyl and reevaluate in the next 24 hours. Colitis sigmoid colon, continue treatment regimen with Flagyl and Cipro. Plant: Diet increase to heart healthy as tolerated with nutritional supplements PPI Carafate Flagyl, Cipro Monitor H/H and transfuse as needed Supportive care to patient and her family member, encourage patient to stay in the hospital until she is medically stable for discharge. She agreed Further recommendations based on findings of above and clinical course Pt has been seen and examined by myself and Dr. Schuster and this note is written on his behalf (Jenna Bolton) Physician Comments Agree with above, will keep one more day for observation and okay for discharge in AM if stable. (Toyin Schuster MD) Jenna Bolton Dec 22, 2017 14:25 Toyin Schuster MD Dec 23, 2017 11:55
[2017-12-22 16:00] VITALS: BP 185/79; PULSE 45; RESP 17; TEMP 98.9; O2SAT 99
--- NOTE | 2017-12-22 16:01 | HHI.PR ---
Subjective Remarks The pt said she missed a blood pressure medication. She has no abdominal pain. She is eating well. No shortness of breath. Has not been passing any more blood. Discussed with son at bedside. Discussed with nursing. Objective Vitals Vital Signs Date Time Temp Pulse Resp B/P (MAP) Pulse Ox O2 Delivery O2 Flow Rate FiO2 12/22/17 11:35 99.2 44 18 146/64 (91) 97 12/22/17 08:00 46 12/22/17 07:23 98.3 41 18 140/59 (86) 98 12/22/17 03:59 12/22/17 03:42 98.1 40 16 129/48 (75) 97 12/21/17 23:01 98.8 50 16 167/77 (107) 97 12/21/17 19:45 98.2 51 16 138/60 (86) 98 12/21/17 17:31 97.7 46 18 161/56 (91) 96 12/21/17 17:29 58 I/O 12/21/17 12/21/17 12/21/17 12/22/17 12/22/17 12/22/17 07:00 15:00 23:00 07:00 15:00 23:00 Intake Total 240 ml 100 ml 240 ml 200 ml Balance 240 ml 100 ml 240 ml 200 ml Intake Oral 240 ml 240 ml 200 ml Other 100 ml # Voids 2 2 # Bowel Movements 9 1 Result Diagram: 12/22/17 0430 12/22/17 0430 Imaging Last Impressions Chest X-Ray 12/19/17 1008 Signed Impressions: CONCLUSION: Status post CABG. Lungs are grossly clear. Femur X-Ray 12/19/17 0000 Signed Impressions: CONCLUSION: Atherosclerotic disease. No acute fracture. 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 Abnormal descending and sigmoid colon with wall thickening and adjacent hyp eremia. The distal transverse colon may be abnormal as well. Findings are diagn ostic of a colitis with inflammatory, infectious, or ischemic etiologies in the differential diagnosis. The distribution of the abnormality and vascular findi ngs raise suspicion for ischemic process. 2. Severe atherosclerotic disease with moderate atherosclerotic disease of the superior mesenteric artery and possible occlusion of the inferior mesenteric a rtery. Objective Remarks GENERAL: This is a well-nourished, well-developed patient, in no apparent distress. SKIN: No rashes, ecchymoses or lesions. Cool and dry. HEAD: Atraumatic. Normocephalic. No temporal or scalp tenderness. EYES: Pupils equal round and reactive. Extraocular motions intact. No scleral icterus. No injection or drainage. ENT: Nose without bleeding, purulent drainage or septal hematoma. Throat without erythema, tonsillar hypertrophy or exudate. Uvula midline. Airway patent. NECK: Trachea midline. No JVD or lymphadenopathy. Supple, nontender, no meningeal signs. CARDIOVASCULAR: Regular rate and rhythm without murmurs, gallops, or rubs. RESPIRATORY: Clear to auscultation. Breath sounds equal bilaterally. No wheezes , rales, or rhonchi. GASTROINTESTINAL: Abdomen soft, non-tender, nondistended. No hepato-splenomegaly , or palpable masses. No guarding. MUSCULOSKELETAL: Extremities without clubbing, cyanosis, or edema. No joint tenderness, effusion, or edema noted. NEUROLOGICAL: Awake and alert. Cranial nerves II through XII intact. Motor and sensory grossly within normal limits. Five out of 5 muscle strength in all muscle groups. Normal speech. Procedures Colonoscopy A/P Assessment and Plan Abdominal pain/ BRBPR/ Colitis The pt endorses lower abdominal pain and BRBPR. CT of the abdomen shows: Abnormal descending and sigmoid colon with wall thickening and adjacent hyperemia; The distal transverse colon may be abnormal as well; Findings are diagnostic of a colitis with inflammatory, infectious, or ischemic etiologies in the differential; Severe atherosclerotic disease with moderate atherosclerotic disease of the superior mesenteric artery and inferior mesenteric artery. GI consult appreciated. Colonoscopy 12/21: Large sized circumferential diffuse colitis was found in the sigmoid colon; The mucosa was oozing blood, edematous, congested, erythematous and had superficial ulcers and erosions; Normal Terminal ileum. - PPI. - GI following. - holding ASA. Resume when OK by GI. - diet advanced. - continue Carafate. - continue IV Cipro and Flagyl. Switch to PO upon discharge. - follow pathology. Near syncope/ Bradycardia S/t straining with bowel movements. She also has a history of bradycardia and is due for a pacemaker placement by Dr. Yoder on Monday. EKG with junctional bradycardia. - telemetry. - IV fluids. - treatment as above. - discussed with cardiology, pacemaker placement will be deferred at this time. Outpt follow-up. DM On glipizide as an outpt. - hold glipizide. - follow BMP. Hypokalemia S/t decreased PO intake. - replete and monitor. HTN Blood pressure has been elevated. - continue lisinopril. - resume amlodipine. - clonidine or Vasotec as needed. PPx: SCDs Discharge Planning D/c in AM if cleared by Jim Abdalla DO Dec 22, 2017 16:01
[2017-12-22] MEDS: amLODIPine BESYLATE 5 MG TAB PO SCH (16:49)
[2017-12-22 19:35] VITALS: BP 165/77; PULSE 53; RESP 18; TEMP 97.7; O2SAT 97
[2017-12-23] VITALS: BP 132/61; PULSE 62; RESP 18; TEMP 98; O2SAT 98
[2017-12-23] MEDS: CIPROFLOXACIN 400 MG PREMIX 200 ML IV SCH (03:13)
[2017-12-23 03:45] VITALS: BP 149/66; PULSE 58; RESP 18; TEMP 98.5; O2SAT 98
[2017-12-23 06:25] LABS: AUTOMATED NEUTROPHIL # 3.1 TH/MM3 (1.8-7.7); BASOPHIL % 0.3 % (0.0-2.0); EOSINOPHIL % 0.6 % (0.0-4.0); HEMATOCRIT 37.1 % (35.0-46.0); HEMOGLOBIN 12.8 GM/DL (11.6-15.3); LYMPH % 30.6 % (9.0-44.0); LYMPHOCYTE # 1.6 TH/MM3 (1.0-4.8); MEAN CELL VOLUME 88.1 FL (80.0-100.0); MEAN CORPUSCULAR HEMOGLOBIN 30.5 PG (27.0-34.0); MEAN CORPUSCULAR HGB CONC 34.7 % (32.0-36.0); MEAN PLATELET VOLUME 9.8 FL (7.0-11.0); MONO % 8.4 % (0.0-8.0); MONOCYTE # 0.4 TH/MM3 (0-0.9); NEUT % 60.1 % (16.0-70.0); PLATELET COUNT 116 TH/MM3 (150-450); RED BLOOD COUNT 4.21 MIL/MM3 (4.00-5.30); RED CELL DISTRIBUTION WIDTH 13.9 % (11.6-17.2); WHITE BLOOD COUNT 5.1 TH/MM3 (4.0-11.0)
[2017-12-23] MEDS: metroNIDAZOLE 500 MG INJ 100 ML IV SCH (07:03)
[2017-12-23 08:00] VITALS: BP 143/65; PULSE 61; RESP 18; TEMP 98.2; O2SAT 98
[2017-12-23] MEDS: SUCRALFATE 1 GM/10 ML CUP PO SCH (08:00)
[2017-12-23] MEDS: PANTOPRAZOLE SODIUM 40 MG VIAL IV PUSH SCH (08:44)
[2017-12-23] MEDS: SODIUM CHLORIDE 0.9% FLUSH 10 ML FLUSH IV FLUSH SCH (08:44)
[2017-12-23] MEDS: GABAPENTIN 100 MG CAP PO SCH (08:44)
[2017-12-23] MEDS: amLODIPine BESYLATE 5 MG TAB PO SCH (08:45)
[2017-12-23] MEDS: LISINOPRIL 10 MG TAB PO SCH (08:57)
[2017-12-23] MEDS ORDERED: POTASSIUM CHLORIDE 20 MEQ CONTROLLED RELEASE TAB PO ONE (09:15)
[2017-12-23] MEDS ORDERED: AMLO5 PO (09:31)
[2017-12-23] MEDS ORDERED: CIPR500T2 PO (09:31)
[2017-12-23] MEDS ORDERED: PANT40TA3 PO (09:31)
[2017-12-23] MEDS ORDERED: METR-1 PO (09:31)
--- NOTE | 2017-12-23 09:34 | HHI.DCPOC ---
Discharge Care Plan Diagnosis: (1) BRBPR (bright red blood per rectum) (2) Colitis Goals to Promote Your Health * To prevent worsening of your condition and complications * To maintain your health at the optimal level Directions to Meet Your Goals Take your medications as prescribed Follow your dietary instruction Follow activity as directed Keep your appointments as scheduled Take your immunizations and boosters as scheduled If your symptoms worsen call your PCP, if no PCP go to Urgent Care Center or Emergency Room Smoking is Dangerous to Your Health. Avoid second hand smoke Call the 24-hour hour crisis hotline for domestic abuse at Jim Cerda DO Dec 23, 2017 09:34
[2017-12-23] MEDS ORDERED: META48.53 PO (09:37)
[2017-12-23] MEDS ORDERED: DOCU100C15 PO (09:37)
--- NOTE | 2017-12-23 09:41 | HHI.DS ---
Discharge Summary Admission Date Dec 19, 2017 at 14:53 Discharge Date: Dec 23, 2017 Admitting Diagnosis Colitis, syncope, bradycardia (1) Colitis ICD Code: K52.9 - Noninfective gastroenteritis and colitis, unspecified Diagnosis: Principal (2) BRBPR (bright red blood per rectum) ICD Code: K62.5 - Hemorrhage of anus and rectum Diagnosis: Principal Procedures Colonoscopy Brief History - From Admission The patient is a 77-year-old female with past medical history of bradycardia, CABG and gastritis who is presenting to the hospital with abdominal pain and bright red blood per rectum. The patient says that she always has problems with constipation. She takes suppositories on a regular basis and strains with bowel movements. She said that today during a strenuous bowel movement she almost passed out and had to crawl from the floor in the bathroom to her bedroom. She called her son who helped her get to the hospital. The patient apparently had a similar episode of lower abdominal pain in the past. She said she had a workup with an upper and lower endoscopy. She is unable to remember who the etl software engineer was. She says she has almost passed out while trying to pass bowel movements in the past. The patient says that her pain is located in the lower part of her abdomen and describes it as large intestine pain. She says eating food makes it better. The pt says that her bowel movements have become watery and bloody as of today. She says she has been passing small amounts of pure blood. She says that she does have gastritis and having sucralfate seems to be helping. She says she has a slow heart rate and is due to have a pacemaker on Monday. Discussed with her son at the bedside. CBC/BMP: 12/23/17 0411 12/22/17 0430 Significant Findings Laboratory Tests Test 12/21/17 04:40 12/21/17 16:50 12/21/17 16:53 12/22/17 04:30 Red Blood Count 3.96 MIL/MM3 (4.00-5.30) Platelet Count 117 TH/MM3 (150-450) Random Glucose 136 MG/DL (74-106) 116 MG/DL (74-106) Chloride Level 110 MEQ/L (98-107) 108 MEQ/L (98-107) Estimat Glomerular Filtration Rate 86 ML/MIN (>89) 83 ML/MIN (>89) Test 12/23/17 04:11 Platelet Count 116 TH/MM3 (150-450) Monocytes (%) (Auto) 8.4 % (0.0-8.0) Imaging Last Impressions Chest X-Ray 12/19/17 1008 Signed Impressions: CONCLUSION: Status post CABG. Lungs are grossly clear. Femur X-Ray 12/19/17 0000 Signed Impressions: CONCLUSION: Atherosclerotic disease. No acute fracture. 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 Abnormal descending and sigmoid colon with wall thickening and adjacent hyp eremia. The distal transverse colon may be abnormal as well. Findings are diagn ostic of a colitis with inflammatory, infectious, or ischemic etiologies in the differential diagnosis. The distribution of the abnormality and vascular findi ngs raise suspicion for ischemic process. 2. Severe atherosclerotic disease with moderate atherosclerotic disease of the superior mesenteric artery and possible occlusion of the inferior mesenteric a rtery. PE at Discharge GENERAL: This is a well-nourished, well-developed patient, in no apparent distress. SKIN: No rashes, ecchymoses or lesions. Cool and dry. HEAD: Atraumatic. Normocephalic. No temporal or scalp tenderness. EYES: Pupils equal round and reactive. Extraocular motions intact. No scleral icterus. No injection or drainage. ENT: Nose without bleeding, purulent drainage or septal hematoma. Throat without erythema, tonsillar hypertrophy or exudate. Uvula midline. Airway patent. NECK: Trachea midline. No JVD or lymphadenopathy. Supple, nontender, no meningeal signs. CARDIOVASCULAR: Regular rate and rhythm without murmurs, gallops, or rubs. RESPIRATORY: Clear to auscultation. Breath sounds equal bilaterally. No wheezes , rales, or rhonchi. GASTROINTESTINAL: Abdomen soft, non-tender, nondistended. No hepato-splenomegaly , or palpable masses. No guarding. + BS. MUSCULOSKELETAL: Extremities without clubbing, cyanosis, or edema. No joint tenderness, effusion, or edema noted. NEUROLOGICAL: Awake and alert. Cranial nerves II through XII intact. Motor and sensory grossly within normal limits. Five out of 5 muscle strength in all muscle groups. Normal speech. Pt update on day of discharge The pt said that she has been passing gas. She has been tolerating a diet. She wants to know how to avoid constipation. She is looking forward to going home. Discussed with nursing. Hospital Course Abdominal pain/ BRBPR/ Colitis The pt endorsed lower abdominal pain and BRBPR. CT of the abdomen shows: Abnormal descending and sigmoid colon with wall thickening and adjacent hyperemia; The distal transverse colon may be abnormal as well; Findings are diagnostic of a colitis with inflammatory, infectious, or ischemic etiologies in the differential; Severe atherosclerotic disease with moderate atherosclerotic disease of the superior mesenteric artery and inferior mesenteric artery. GI was consulted. Colonoscopy 12/21: Large sized circumferential diffuse colitis was found in the sigmoid colon; The mucosa was oozing blood, edematous, congested, erythematous and had superficial ulcers and erosions; Normal Terminal ileum. She was continued on a PPI. We continued holding ASA. Her diet was advanced. She was continued on Carafate. We continued IV Cipro and Flagyl and will switch to PO upon discharge. Pathology is pending. The pt will follow up with GI as an outpt. Near syncope/ Bradycardia S/t straining with bowel movements. She also has a history of bradycardia and was scheduled for pacemaker placement by Dr. Yoder. EKG with junctional bradycardia. She was monitored on telemetry. She received IV fluids. Discussed with cardiology, pacemaker placement will be deferred at this time. We will continue to hold her ASA. She will follow-up with cardiology as an outpt. Hypokalemia S/t decreased PO intake. S/p repletion. Her diet was advanced. HTN Blood pressure has been elevated. We continued her home lisinopril and resumed her amlodipine. She will follow up with her PCP. Pt Condition on Discharge: Stable Discharge Disposition: Discharge Home Discharge Time: > 30 minutes Discharge Instructions DIET: Follow Instructions for: Heart Healthy Diet Activities you can perform: Weight Bearing as Cintia Follow up Referrals: Cardiology - 1 Week with Cooper Yoder MD Gastroenterology - 1 Week with Toyin Schuster MD PCP Follow-up - 1 Week New Medications: Ciprofloxacin (Ciprofloxacin) 500 Mg Tab 500 MG PO BID for Infection, #16 TAB 0 Refills Docusate Sodium (Docusate Sodium) 100 Mg Cap 100 MG PO BID for Prevent Constipation, #60 CAP 0 Refills Metronidazole (Flagyl) 500 Mg Tab 500 MG PO TID for Infection for 8 Days, TAB 0 Refills Pantoprazole (Pantoprazole) 40 Mg Tab 40 MG PO DAILY for Reflux, #30 TAB 0 Refills Psyllium Powder (Metamucil Original Texture) 3.4 Gram/7 Gram Pow 1 SCOOP PO TID PRN for CONSTIPATION, #1 CONTAINER 0 Refills 1 rounded TEASPOON in 8 oz of liquid at the first sign of irregularity. Amlodipine (Norvasc) 5 Mg Tab 5 MG PO DAILY for Blood Pressure Management, #30 TAB Continued Medications: Cyclobenzaprine (Flexeril) 5 Mg Tab 5 MG PO TID for Muscle Spasm, #15 TAB 0 Refills Gabapentin (Gabapentin) 100 Mg Cap 100 MG PO DAILY, #60 CAP 0 Refills Glipizide (Glipizide) 5 Mg Tab 5 MG PO BIDAC for Blood Sugar Management, #60 TAB 0 Refills Take 30 minutes before a meal Lisinopril (Lisinopril) 10 Mg Tab 10 MG PO DAILY, #30 TAB 0 Refills Sucralfate (Carafate) 1 Gram Tab 1 GM PO TID for Ulcer Prevention, #90 TAB 0 Refills On empty stomach Discontinued Medications: Aspirin (Aspirin Low Dose) 81 Mg Chew 81 MG CHEW DAILY, TAB 0 Refills Jim Cerda DO Dec 23, 2017 09:41
== END 2017-12-23 10:23 | disposition home or self-care (01) | DRG 378 ==
LOC: NEPE 09:45 → NEDA 14:53 → NEDH 19:10 → NEPGCP 20:14 → N06A 12-22 15:43
PROVIDERS: ADMIT Hospitalist; ATTEND Hospitalist
PROC: 0DBN8ZX Excision of Sigmoid Colon, Via Natural or Artificial Opening Endoscopic, Diagnostic (ICD-10-PCS; principal; 2017-12-21 14:28)
DX: K62.5 Hemorrhage of anus and rectum (principal); K63.3 Ulcer of intestine; R00.1 Bradycardia, unspecified; K52.9 Noninfective gastroenteritis and colitis, unspecified; K59.09 Other constipation; E11.9 Type 2 diabetes mellitus without complications; I10 Essential (primary) hypertension; I70.0 Atherosclerosis of aorta; R55 Syncope and collapse; R19.5 Other fecal abnormalities; K29.70 Gastritis, unspecified, without bleeding; I25.10 Atherosclerotic heart disease of native coronary artery without angina pectoris; R01.1 Cardiac murmur, unspecified; E87.6 Hypokalemia; E78.00 Pure hypercholesterolemia, unspecified; M25.552 Pain in left hip; K21.9 Gastro-esophageal reflux disease without esophagitis; W19.XXXA Unspecified fall, initial encounter; Z95.1 Presence of aortocoronary bypass graft; Z82.49 Family history of ischemic heart disease and other diseases of the circulatory system; Z87.891 Personal history of nicotine dependence; Z79.899 Other long term (current) drug therapy
CPT/HCPCS: 71045; 73552; 74177; 80048; 80053; 81001; 82550; 82552; 82948; 83605; 83690; 83735; 84484; 85014; 85018; 85025; 85027; 85610; 85730; 87493; 87506; 88305; 93005; 96374; C9113; J0744; J2270; J7030; J7120; Q9967

== ENCOUNTER 2017-12-28 06:22 | Emergency (ER) | payer MEDICARE, OTHER ==
[~2017-12-28] VITALS: Ht 162.6 cm; Wt 62.3 kg
[~2017-12-28 06:22] MED LIST changes: +AMLO5 PO; -ASPI81CH6 CHEW; +CIPR500T2 PO; +DOCU100C15 PO; +META48.53 PO; +METR-1 PO; +PANT40TA3 PO
[2017-12-28 06:26] VITALS: BP 170/75; PULSE 50; RESP 18; TEMP 98.7; O2SAT 98
[2017-12-28] MEDS ORDERED: ONDANSETRON HCL 4 MG/2 ML VIAL IV PUSH ONE (07:15)
[2017-12-28] MEDS ORDERED: SODIUM CHLOR 0.9% 1000 ML INJ 1,000 ML IV ONE (07:15)
--- NOTE | 2017-12-28 07:17 | PD ---
HPI Chief Complaint: GI Complaint Time Seen by Provider: 06:55 Travel History International Travel<30 days: No Contact w/Intl Traveler<30days: No Traveled to known affect area: No History of Present Illness HPI 77-year-old female is complaining of lower abdominal pain and urge to defecate. She was admitted to the hospital on December 19 with lower abdominal pain. She had a CT scan suggestive of colitis etiology was unclear. She had a colonoscopy and was in the hospital for several days. She was discharged on the and was doing fairly well when she went home. She says the last couple of days she has been having increasing lower abdominal pain she feels like she has to have a bowel movement. This is similar to the pain she had prior to being admitted. She is on 2 antibiotics. She has a history of coronary bypass surgery in 2004. She is recently been having bradycardia and is supposed to have a pacemaker placed in the near future. She had been on aspirin but this was stopped at the time of her last hospital admission because she was having some rectal bleeding. Her appetite has been diminished. She has had a couple of very small bowel movement since being released. She feels like she has to go now. She has not been taking anything for pain at home PFSH Past Medical History Arthritis: No Asthma: No Blood Disorders: No Anxiety: No Depression: No Heart Rhythm Problems: Yes (MURMUR) Cancer: No Cardiac Catheterization: Yes Cardiovascular Problems: Yes High Cholesterol: Yes Chemotherapy: No Chest Pain: No Congestive Heart Failure: No COPD: No Cerebrovascular Accident: No Coronary Artery Disease: Yes Diabetes: Yes Patient Takes Glucophage: Yes Diminished Hearing: No Endocrine: Yes Gastrointestinal Disorders: Yes (CHRONIC CONSTIPATION ) GERD: Yes Genitourinary: No Hiatal Hernia: No Hypertension: Yes Immune Disorder: No Implanted Vascular Access Dvce: Yes Kidney Stones: No Musculoskeletal: No Neurologic: Yes Psychiatric: No Reproductive: No Respiratory: No Immunizations Current: Yes Migraines: No Radiation Therapy: No Renal Failure: No Seizures: No Sickle Cell Disease: No Sleep Apnea: No Thyroid Disease: No Ulcer: No Tetanus Vaccination: Unknown Influenza Vaccination: Yes Past Surgical History Abdominal Surgery: Yes (choly) AICD: No Arteriovenous Shunt: No Body Medical Devices: SCREWS IN LT ARM Cardiac Surgery: Yes (cabg) Cholecystectomy: Yes Coronary Artery Bypass Graft: Yes Ear Surgery: No Endocrine Surgery: No Eye Surgery: No Genitourinary Surgery: No Gynecologic Surgery: No Insulin Pump: No Joint Replacement: No Oral Surgery: No Pacemaker: No Thoracic Surgery: No Other Surgery: Yes (CABG, LEFT ARM SX, ) Social History Alcohol Use: No Tobacco Use: No (quit 2004) Substance Use: No Allergies-Medications (Allergen,Severity, Reaction): Coded Allergies: No Known Allergies (Unverified Allergy, Unknown, 12/28/17) Reported Meds & Prescriptions Reported Meds & Active Scripts Active Docusate Sodium 100 Mg Cap 100 Mg PO BID Metamucil Original Texture (Psyllium Hydrophilic Mucilloid) 3.4 Gram/7 Gram Pow 1 Scoop PO TID PRN 1 rounded TEASPOON in 8 oz of liquid at the first sign of irregularity. Flagyl (Metronidazole) 500 Mg Tab 500 Mg PO TID 8 Days Ciprofloxacin (Ciprofloxacin HCl) 500 Mg Tab 500 Mg PO BID Pantoprazole (Pantoprazole Sodium) 40 Mg Tab 40 Mg PO DAILY Norvasc (Amlodipine Besylate) 5 Mg Tab 5 Mg PO DAILY Reported Carafate (Sucralfate) 1 Gram Tab 1 Gm PO TID On empty stomach Gabapentin 100 Mg Cap 100 Mg PO DAILY Glipizide 5 Mg Tab 5 Mg PO BIDAC Take 30 minutes before a meal Lisinopril 10 Mg Tab 10 Mg PO DAILY Review of Systems General / Constitutional: No: Fever, Chills Eyes: No: Diploplia, Blurred Vision HENT: No: Headaches, Vertigo Cardiovascular: No: Chest Pain or Discomfort, Palpitations Respiratory: No: Cough, Shortness of Breath Gastrointestinal: Positive: Loss of Appetite, No: Nausea, Vomiting Genitourinary: No: Frequency Musculoskeletal: No: Myalgias Skin: No Rash, No Itching Physical Exam Narrative GENERAL: Thin female SKIN: Focused skin assessment warm/dry. HEAD: Atraumatic. Normocephalic. EYES: Pupils equal and round. No scleral icterus. No injection or drainage. ENT: No nasal bleeding or discharge. Mucous membranes pink and moist. NECK: Trachea midline. No JVD. CARDIOVASCULAR: Regular rate and rhythm. There is a systolic murmur RESPIRATORY: No accessory muscle use. Clear to auscultation. Breath sounds equal bilaterally. GASTROINTESTINAL: Abdomen soft, there is lower abdominal tenderness, nondistended. Hepatic and splenic margins not palpable. Rectal exam no masses no stool was obtained rectal vault is empty MUSCULOSKELETAL: No obvious deformities. No clubbing. No cyanosis. No edema. NEUROLOGICAL: Awake and alert. No obvious cranial nerve deficits. Motor grossly within normal limits. Normal speech. PSYCHIATRIC: Appropriate mood and affect; insight and judgment normal. Data Data Last Documented VS Vital Signs Date Time Temp Pulse Resp B/P (MAP) Pulse Ox O2 Delivery O2 Flow Rate FiO2 12/28/17 10:28 54 17 157/74 (101) 98 Room Air 12/28/17 06:26 98.7 Orders Orders Complete Blood Count With Diff (12/28/17 07:13) Comprehensive Metabolic Panel (12/28/17 07:13) Urinalysis - C+S If Indicated (12/28/17 07:13) Sodium Chlor 0.9% 1000 Ml Inj (Ns 1000 M (12/28/17 07:15) Ondansetron Inj (Zofran Inj) (12/28/17 07:15) Lactic Acid (12/28/17 07:18) Cta Abd/Pel W Iv Contrast W 3d (12/28/17 ) Morphine Inj (Morphine Inj) (12/28/17 07:45) Iohexol 350 Inj (Omnipaque 350 Inj) (12/28/17 08:53) Labs Laboratory Tests Test 12/28/17 07:30 White Blood Count 7.8 TH/MM3 Red Blood Count 4.67 MIL/MM3 Hemoglobin 14.0 GM/DL Hematocrit 41.7 % Mean Corpuscular Volume 89.4 FL Mean Corpuscular Hemoglobin 30.0 PG Mean Corpuscular Hemoglobin Concent 33.5 % Red Cell Distribution Width 13.3 % Platelet Count 205 TH/MM3 Mean Platelet Volume 8.6 FL Neutrophils (%) (Auto) 66.1 % Lymphocytes (%) (Auto) 24.1 % Monocytes (%) (Auto) 9.0 % Eosinophils (%) (Auto) 0.5 % Basophils (%) (Auto) 0.3 % Neutrophils # (Auto) 5.2 TH/MM3 Lymphocytes # (Auto) 1.9 TH/MM3 Monocytes # (Auto) 0.7 TH/MM3 Eosinophils # (Auto) 0.0 TH/MM3 Basophils # (Auto) 0.0 TH/MM3 CBC Comment DIFF FINAL Differential Comment Urine Collection Type CLEAN CATCH Urine Color YELLOW Urine Turbidity CLEAR Urine pH 5.0 Urine Specific [place] 1.010 Urine Protein NEG mg/dL Urine Glucose (UA) NEG mg/dL Urine Ketones NEG mg/dL Urine Occult Blood NEG Urine Nitrite NEG Urine Bilirubin NEG Urine Urobilinogen 0.2 MG/DL Urine Leukocyte Esterase SMALL Urine WBC 0-2 /hpf Urine Squamous Epithelial Cells 0-5 /hpf Urine Bacteria OCC /hpf Microscopic Urinalysis Comment CULT NOT INDICATED Blood Urea Nitrogen 13 MG/DL Creatinine 0.72 MG/DL Random Glucose 133 MG/DL Total Protein 7.9 GM/DL Albumin 3.8 GM/DL Calcium Level 9.2 MG/DL Alkaline Phosphatase 54 U/L Aspartate Amino Transf (AST/SGOT) 25 U/L Alanine Aminotransferase (ALT/SGPT) 34 U/L Total Bilirubin 0.5 MG/DL Sodium Level 139 MEQ/L Potassium Level 3.5 MEQ/L Chloride Level 105 MEQ/L Carbon Dioxide Level 26.1 MEQ/L Anion Gap 8 MEQ/L Estimat Glomerular Filtration Rate 78 ML/MIN Lactic Acid Level 0.9 mmol/L MDM Medical Decision Making Medical Screen Exam Complete: Yes Emergency Medical Condition: Yes Medical Record Reviewed: Yes Differential Diagnosis Differential includes resolving colitis, ischemic colitis, exacerbation of colitis Narrative Course White count is normal. I did discuss the case with Dr. Sharif who recommended that we do a CTA to ensure that there is no evidence of ischemic colitis and the CTA is read as negative. The patient was given a small dose of morphine and reports improvement in her pain. She has not been taking anything for pain and I have advised her that she could take Tylenol at home. This the colitis appears to be improving but she is concerned that she has not had a bowel movement though she is not eating. She will be released Diagnosis Primary Impression: Colitis Additional Instructions: Continue antibiotics, take Tylenol for pain Disposition: 01 DISCHARGE HOME Condition: Stable Chino Jose MD Dec 28, 2017 07:17
[2017-12-28 07:38] LABS: AUTOMATED NEUTROPHIL # 5.2 TH/MM3 (1.8-7.7); BASOPHIL % 0.3 % (0.0-2.0); BILIRUBIN, URINE NEG (NEG); BLOOD, URINE NEG (NEG); EOSINOPHIL % 0.5 % (0.0-4.0); GLUCOSE,URINE NEG (NEG); HEMATOCRIT 41.7 % (35.0-46.0); KETONE, URINE NEG (NEG); LYMPH % 24.1 % (9.0-44.0); LYMPHOCYTE # 1.9 TH/MM3 (1.0-4.8); MEAN CELL VOLUME 89.4 FL (80.0-100.0); MEAN CORPUSCULAR HGB CONC 33.5 % (32.0-36.0); MEAN PLATELET VOLUME 8.6 FL (7.0-11.0); MONOCYTE # 0.7 TH/MM3 (0-0.9); NEUT % 66.1 % (16.0-70.0); NITRITE,URINE NEG (NEG); PLATELET COUNT 205 TH/MM3 (150-450); RED BLOOD COUNT 4.67 MIL/MM3 (4.00-5.30); RED CELL DISTRIBUTION WIDTH 13.3 % (11.6-17.2); URINE COLOR YELLOW (YELLW/STRAW); URINE LEUKOCYTE ESTERASE SMALL (NEG); WHITE BLOOD COUNT 7.8 TH/MM3 (4.0-11.0)
[2017-12-28] MEDS ORDERED: MORPHINE SULFATE 4 MG/ML INJ IV PUSH ONE (07:45)
[2017-12-28 07:47] LABS: BACTERIA, URINE OCC /hpf; SQUAMOUS EPITHELIAL CELL URINE 0-5 /hpf (0-5); WBC, URINE 0-2 /hpf (0-5)
[2017-12-28 07:48] VITALS: BP 159/73; PULSE 49; RESP 16; O2SAT 98
[2017-12-28 07:52] LABS: CHLORIDE 105 MEQ/L (98-107); SODIUM (NA) 139 MEQ/L (136-145)
[2017-12-28 07:55] LABS: CALCIUM 9.2 MG/DL (8.5-10.1)
[2017-12-28 07:56] LABS: ALBUMIN 3.8 GM/DL (3.4-5.0); BICARBONATE 26.1 MEQ/L (21.0-32.0); BLOOD UREA NITROGEN 13 MG/DL (7-18); GLUCOSE,RANDOM 133 MG/DL (74-106)
[2017-12-28 07:59] LABS: ALT (GPT) 34 U/L (10-53); AST (GOT) 25 U/L (15-37); CREATININE 0.72 MG/DL (0.50-1.00); GLOMERULAR FILTRATION RATE 78 ML/MIN (>89)
[2017-12-28 08:01] LABS: TOTAL BILIRUBIN ADULT 0.5 MG/DL (0.2-1.0); TOTAL PROTEIN 7.9 GM/DL (6.4-8.2)
[2017-12-28 08:02] LABS: ALKALINE PHOSPHATASE 54 U/L (45-117)
[2017-12-28] MEDS ORDERED: IOHEXOL 350 MG/ML 10 ML VIAL (for RAD DIAG) IVCONTRAST ONE (08:53)
[2017-12-28 09:30] VITALS: BP 165/75; PULSE 52; RESP 18; O2SAT 98
--- NOTE | 2017-12-28 10:09 | RADRPT ---
EXAM DATE: 12/28/2017 9:09 AM EDT AGE/SEX: 77 years / Female INDICATIONS: Lower abdominal pain. Evaluate for occlusion. CLINICAL DATA: This is the patient's initial encounter. Patient reports that signs and symptoms have been present for 1 day and indicates a pain score of 10/10. MEDICAL/SURGICAL HISTORY: Gastroesophageal reflux disease. Cardiovascular disease. Diabetes. Col itis. Hypertension. CABG. Cholecystectomy. RADIATION DOSE: 18.42 CTDI (mGy) COMPARISON: No prior exams available for comparison. TECHNIQUE: Volumetric scanning was performed using a multi-row detector CT scanner during bolus infu everett of 90 ml Omnipaque 350 (iohexol) nonionic water-soluble contrast as a single exam dose. . The data was post processed with a variety of visualization algorithms including full volume maximum inte nsity projection, multi-planar sliding thin slab reformation, curved planar reformation, and surface rendering techniques. Using automated exposure control and adjustment of the mA and/or kV according to patient size, radiation dose was kept as low as reasonably achievable to obtain optimal diagnostic quality images. FINDINGS: ABDOMINAL AORTA: Scattered calcified atheromatous plaque throughout the abdominal aorta and inflow ve ssels. No aneurysmal change, dissection, or hemodynamically significant stenosis. The celiac, SMA and renal arteries are patent. The distal portion of the SMA shows eccentric atheromatous plaque with le ss than 30% luminal narrowing. The origin of the VANESSA is felt occluded but the peripheral distribution opacifies with contrast. A moderate stenosis is seen involving the internal iliac artery origins klever aterally. OTHER STRUCTURES: Bowel structures are normal in caliber. No free air or free fluid. Major abdominal viscera are unremarkable on this arterial phase study. A tiny hiatal hernia noted. CONCLUSION: 1. Diffuse atherosclerotic disease without hemodynamically significant stenosis involving the mesent carlos vessels. The VANESSA is occluded at its origin but the peripheral distribution opacifies via SMA col lateralization. This is clinically insignificant. No acute abnormality. Electronically signed by: Gene Blackman MD 12/28/2017 10:08 AM EDT
[2017-12-28 10:28] VITALS: BP 157/74; PULSE 54; RESP 17; O2SAT 98
== END 2017-12-28 10:48 | disposition home or self-care (01) ==
LOC: PHED 06:22
DX: K52.9 Noninfective gastroenteritis and colitis, unspecified (principal); R00.1 Bradycardia, unspecified; E78.00 Pure hypercholesterolemia, unspecified; I25.10 Atherosclerotic heart disease of native coronary artery without angina pectoris; E11.9 Type 2 diabetes mellitus without complications; I10 Essential (primary) hypertension; K21.9 Gastro-esophageal reflux disease without esophagitis; K59.09 Other constipation; Z95.1 Presence of aortocoronary bypass graft; Z87.891 Personal history of nicotine dependence; Z79.899 Other long term (current) drug therapy
CPT/HCPCS: 74174; 80053; 81001; 83605; 85025; 96361; 96374; 96375; 99284; J2270; J2405; J7030; Q9967

== ENCOUNTER 2018-06-27 05:13 | Inpatient (IN) ==
[2018-06-27] MEDS ORDERED: Chlorhexidine Gluconate 2% 1 Pack (2 Cloths) TOPICAL ONE (05:41)
[2018-06-27] MEDS ORDERED: Metoprolol Tartrate 25 MG Tablet PO ONE (05:41)
[2018-06-27] MEDS ORDERED: Aspirin 325 MG Tablet PO SCH (05:45)
[2018-06-27] MEDS ORDERED: Sod Chloride 0.9% Inj 1,000 ML IV.CONT SCH ×2 (05:45→13:00)
[2018-06-27] MEDS ORDERED: Mupirocin 2% Nasal Oint Topical Syringe EACH NARE SCH (05:45)
[2018-06-27] MEDS ORDERED: Chlorhexidine Gluconate 2% 1 Pack (2 Cloths) TOPICAL SCH (05:45)
[2018-06-27] MEDS ORDERED: ceFAZolin 2 GM Premix Inj 2 GM/50 ML PIGGYBACK IV.SIG SCH (06:00)
[2018-06-27] MEDS ORDERED: Sodium Chlor 0.9% Inj 500 ML IV.SIG SCH (06:00)
[2018-06-27] MEDS ORDERED: Heparin 10,000 UNITS/10 ML Vial (for IV use) ONE ×2 (06:40→09:31)
[2018-06-27] MEDS ORDERED: Protamine Sulfate Inj 50 MG/5 ML Vial ONE ×2 (06:40→09:48)
--- NOTE | 2018-06-27 07:52 | P.HPCA ---
History of Present Illness Service: Cardiology Primary Care Physician: Abelino Phillip MD Chief Complaint: Severe aortic valve stenosis History of Present Illness: This is an 78-year-old female she has history of coronary artery disease with coronary bypass grafting in 2004 in addition to percutaneous coronary intervention. Patient has had progressive symptoms of fatigue and weakness along with shortness of breath. Transthoracic echocardiogram revealed severe aortic valve stenosis. Patient was seen and evaluated by cardiothoracic surgery for consideration of surgical aortic valve replacement but felt to be intermediate risk and therefore transcatheter aortic valve replacement is considered. Patient is now here for elective procedure. - Diagnosis (1) Diastolic congestive heart failure (2) Severe aortic valve stenosis Inpatient Certification: I certify that the inpatient services were ordered in accordance with Medicare regulations governing the order. This includes certification that hospital inpatient services are reasonable and necessary and in the case of services not specified as inpatient-only under 42 CFR 419.22(n), that they are appropriately provided as inpatient services in accordance to with the 2-midnight benchmark under 43 CFR 412.3(e) Estimated Total Length of Stay (Days): 3 Plans for Post Hospital Care: Home Review of Systems All other systems reviewed negative except as stated in HPI [facility] - History History Provided By: Patient - Medical History Medical History: Medical History (Last Updated 06/27/18 @ 06:11 by Karlee Dumont RN) Aortic stenosis Atrial fibrillation CKD (chronic kidney disease), stage II Colitis Diabetes mellitus HTN (hypertension) Hiatal hernia Hyperlipidemia Sinus bradycardia Syncope - Surgical History Surgical History: Surgical History (Last Updated 06/27/18 @ 06:11 by Karlee Dumont RN) History of cardiac cath Hx of CABG - Tobacco History Smoking Status: Never smoker - Alcohol History How Often Do You Have a Drink Containing Alcohol: Never Medications and Allergies Active Medications: Active Medications Aspirin (Aspirin) 325 mg PO QUANTITATIVE MANAGER [facility] Stop: 06/30/18 05:39 Chlorhexidine Gluconate (Chlorhexidine 2% Cloth) 3 pack TOPICAL QUANTITATIVE MANAGER [facility] Stop: 06/30/18 05:39 Cefazolin Sodium/Dextrose (Ancef 2 Gm Premix Inj) 2 gm in 50 mls @ 100 mls/hr IV.SIG ONCE [facility] Stop: 06/30/18 05:39 Sodium Chloride (Ns Inj) 1,000 mls @ 125 mls/hr IV.CONT .Q8H [place] Sodium Chloride (Ns Inj) 500 mls @ 30 mls/hr IV.SIG .Q10H [facility] Mupirocin (Bactroban 2% Nasal Oint) 1 applicatio EACH NARE QUANTITATIVE MANAGER [facility] Stop: 06/30/18 05:39 Povidone Iodine (Betadine 5% Antisepsis Kit) 1 applicatio TOPICAL QUANTITATIVE MANAGER [facility] Stop: 06/30/18 05:39 Allergies Allergy/AdvReac Type Severity Reaction Status Date / Time No Known Allergies Allergy Verified 06/27/18 06:07 Home Medications Medication Instructions Recorded Confirmed Type amlodipine 5 mg PO DAILY 05/30/18 06/27/18 History aspirin [Aspir-81] 81 mg PO DAILY 05/30/18 06/27/18 History gabapentin 100 mg PO HS 05/30/18 06/27/18 History lisinopril 10 mg PO DAILY 05/30/18 06/27/18 History Exam Vital signs: Vital Signs 06/27/18 06:11 Temperature 98.1 F Pulse Rate 46 L Respiratory Rate 16 Blood Pressure 144/62 H Pulse Oximetry 100 Intake & Output 06/26/18 06/27/18 06/27/18 18:59 06:59 18:59 Weight 58.1 kg Other: Weight On Admission 58.1 kg - Constitutional no acute distress - Routine HEENT Exam Eye: Present: EOMI, PERRL ENT: Present: mucous membranes moist - Routine Neck Exam Absent: JVD - Routine Respiratory Exam Present: CTA bilaterally - Routine Cardiovascular Exam Present: RRR, murmur - Routine Abdominal Exam Present: soft, normoactive bowel sounds - Routine Extremities Exam Present: pulses intact. Absent: edema - Routine Neurological Exam Present: oriented X3, CN II-XII intact. Absent: sensory deficit, motor deficit Results Intake and Output 06/26/18 06/27/18 06/27/18 22:59 06:59 14:59 Other: Weight 58.1 kg Weight On Admission 58.1 kg EKG interpretations - Dysrhythmias Sinus rhythms and dysrhythmias: sinus rhythm Caprini VTE Risk Assessment Caprini VTE Risk Assessment: Moderate/High Risk (score >= 2) Caprini Risk Assessment Model: Point Value = 1 Point Value = 2 Point Value = 3 Point Value = 5 Age 41-60 Minor surgery BMI > 25 kg/m2 Swollen legs Varicose veins or History of unexplained or recurrent spontaneous Oral contraceptives or hormone replacement Sepsis (< 1 month) Serious lung disease, including pneumonia (< 1 month) Abnormal pulmonary function Acute myocardial infarction Congestive heart failure (< 1 month) History of inflammatory bowel disease Medical patient at bed rest Age 61-74 Arthroscopic surgery Major open surgery (> 45 min) Laparoscopic surgery (> 45 min) Malignancy Confined to bed (> 72 hours) Immobilizing plaster cast Central venous access Age >= 75 History of VTE Family history of VTE Factor V Leiden Prothrombin [id number] Lupus anticoagulant Anticardiolipin antibodies Elevated serum homocysteine Heparin-induced thrombocytopenia Other congenital or acquired thrombophilia Stroke (< 1 month) Elective arthroplasty Hip, pelvis, or leg fracture Acute spinal cord injury (< 1 month) Prophylaxis Regimen: Total Risk Factor Score Risk Level Prophylaxis Regimen 0-1 Low Early ambulation 2 Moderate Order ONE of the following: *Sequential Compression Device (SCD) *Heparin 5000 units SQ BID 3-4 Higher Order ONE of the following medications: *Heparin 5000 units SQ TID *Enoxaparin/Lovenox 40 mg SQ daily (WT < 150 kg, CrCl > 30 mL/min) *Enoxaparin/Lovenox 30 mg SQ daily (WT < 150 kg, CrCl > 10-29 mL/min) *Enoxaparin/Lovenox 30 mg SQ BID (WT < 150 kg, CrCl > 30 mL/min) AND/OR *Sequential Compression Device (SCD) 5 or more Highest Order ONE of the following medications: *Heparin 5000 units SQ TID (Preferred with Epidurals) *Enoxaparin/Lovenox 40 mg SQ daily (WT < 150 kg, CrCl > 30 mL/min) *Enoxaparin/Lovenox 30 mg SQ daily (WT < 150 kg, CrCl > 10-29 mL/min) *Enoxaparin/Lovenox 30 mg SQ BID (WT < 150 kg, CrCl > 30 mL/min) AND *Sequential Compression Device (SCD) Assessment and Plan - Assessment (1) Diastolic congestive heart failure Code(s): I50.30 - Unspecified diastolic (congestive) heart failure Status: Acute (2) Severe aortic valve stenosis Code(s): I35.0 - Nonrheumatic aortic (valve) stenosis Status: Acute - Plan This is an 78-year-old female she has history of coronary artery disease with coronary bypass surgery and prior percutaneous coronary intervention diagnosed with severe aortic valve stenosis here today for elective transcatheter aortic valve replacement Preoperative workup: STS score 3.6% [place] [employer] functional class III symptoms Body mass index 21.5 Frailty score 2/4 Electrocardiogram shows sinus bradycardia Pulmonary function test from May 30, 2018 shows FEV1 percent of 84 with an FEV1 calculated 1.57 consistent with a normal test Echocardiogram May 25, 2018 shows peak jet velocity 5.85 m/s, mean gradient 70 mmHg, calculated valve area 0.6 cm, ejection fraction 60%. Cardiac catheterization from May 30, 2018 shows severe [place] three-vessel coronary artery disease with severe disease in the saphenous vein graft to the right coronary artery. Percutaneous coronary intervention of the saphenous vein graft to the right coronary artery with drug-eluting stent Computed tomographic analysis from May 31, 2018 shows a short annulus diameter 20.3 mm, long annulus diameter of 28.3 mm, annual area for 62.5 mm, sinus of Valsalva diameter 29.4 mm, sinotubular junction diameter 27.1 mm, left coronary high 12.6 mm, right coronary had 15.3 mm, minimal luminal diameter 7.2 mm on the right and 6.6 mm on the left Risks, benefits, and alternatives were discussed with the patient. Patient understood and consented to proceed. We will plan for transcatheter aortic valve replacement with bioprosthetic 26 mm Rodriguez Jesús S3 valve from the left common femoral arterial approach.
[2018-06-27] MEDS ORDERED: Iohexol Inj 350 MG/ML 100 ML Bottle (for RAD Diag) IVCONTRAST ONE (09:53)
[2018-06-27] MEDS ORDERED: Heparin - SQ 10,000 UNITS/ML Vial ONE (09:55)
--- NOTE | 2018-06-27 10:09 | P.OP ---
Date of procedure: 06/27/18 Anesthesia: MAC Surgeon: Christie Erazo MD Operation and Findings: PREOPERATIVE DIAGNOSIS: 1. Severe Symptomatic Aortic stenosis. 2. CHF 3. Coronary Artery Disease-Status Post CABG 4. Diabetes Mellitus POSTOPERATIVE DIAGNOSIS: Same OPERATION PERFORMED: 1. Transcatheter Aortic Valve Replacement (TAVR) with an Rodriguez 26 mm Jesús 3 Tissue Valve. 2. Aortogram. 3. Percutaneous Bilateral Common Femoral Artery Access 4. Perclose closure of left Common Femoral artery. 5. Vascade closure of right Common Femoral artery and vein. 6. Fluoroscopy SURGEON: Christie Erazo MD CO-SURGEON: Austin Ann MD CRIMINAL ANALYST SURGEON: None FREIGHT ASSOCIATE: JEFF Schulz MD ANESTHESIA: MAC PROCEDURE: The risks, benefits, complications, treatment options, and expected outcomes were discussed with the patient. The possibilities of reaction to medication, pulmonary aspiration, perforation of viscus, bleeding, recurrent infection, the need for additional procedures, failure to diagnose a condition, and creating a complication requiring transfusion or operation were discussed with the patient. The patient concurred with the proposed plan, giving informed consent. The site of surgery properly noted/marked. The patient was taken to the hybrid operating room and the procedure verified as Transcatheter Aortic Valve Replacement. A Time Out was held and the above information confirmed. Standard monitoring lines were placed. Moderate sedation anesthesia was induced. The patient was prepped and draped in a sterile fashion. Initially, the right femoral arterial access was acquired using a Seldinger percutaneous technique. The details of this procedure were dictated under separate note by cardiology. Once a pigtail was positioned in the aortic annulus and a temporary transvenous pacemaker wire was placed in the right ventricular apex and tested, the left femoral artery was accessed using a needle followed by a guidewire under fluoroscopic guidance. The patient was heparinized and 2 Perclose devices deployed for later closure. Serial dilators were used to dilate the left femoral artery to 14 [place] caliber. The Rodriguez sheath was then inserted into the external iliac artery up to the distal abdominal aorta. Arch aortography was performed to define the implant view. A 26 Rodriguez Jesús 3 transcatheter aortic valve was then positioned in the annulus and deployed with the patient being rapidly paced. Following deployment, the valve apparatus was withdrawn and arch aortography and transthoracic echocardiography were performed to assess the valve. The valve had no perivalvular leak. Gradients were then measured and the sheath was removed while securing the Perclose sutures for hemostasis. Protamine was administered. The right arterial access site was closed using the Vascade device. Sterile dressings were placed. At the end of the operation, all sponge, instruments, and needle counts were correct. The patient was transferred to the CVICU in stable condition. Findings: No PVL Implants: 26 Jesús 3 tissue valve Complications: None Disposition: to CVICU in stable condition
--- NOTE | 2018-06-27 10:25 | P.OP ---
Date of procedure: 06/27/18 Procedure: Transcatheter aortic valve replacement Implants: 23 mm Rodriguez Jesús S3 bioprosthetic valve Anesthesia: MAC Surgeon: Austin Ann MD Technician Terminal And Repeater: Christie Erazo Operation and Findings: board lining machine operator: Austin Ann MD Primary Surgeon: Christie Erazo MD Procedures performed: 1. Fluoroscopy with interpretation 2. Left heart catheterization 3. Ascending aortography 4. Temporary transvenous pacemaker placement 7. Transcatheter aortic valve replacement with Rodriguez 23 mm Jesús S3 bioprosthetic valve Methods: Risks, benefits, and alternatives were discussed with the patient. Patient understood and consented to the procedure. Patient was brought into the operating room and placed on the operating table. Bilateral groins and chest were prepped and draped. Under fluoroscopic guidance the right common femoral artery was cannulated and a 5 Belgian 11 cm sheath was placed without difficulty. Left common femoral artery was cannulated under fluoroscopic and angiographic guidance through using a micropuncture sheath. Angiography confirmed appropriate placement. An 8 Belgian sheath was placed without difficulty. 2 Perclose devices were deployed in a pre-close manner. The 14 Belgian Rodriguez sheath was then advanced up over the wire through the iliac system without difficulty into the descending abdominal aorta. Temporary transvenous pacemaker placement: A 5 Belgian balloontipped temporary transvenous pacemaker was advanced under fluoroscopic guidance to the right internal jugular sheath to the right ventricular apex. Appropriate pacing and capture was confirmed and utilized during the procedure for rapid ventricular pacing. Ascending aortography: Ascending aortography was performed using an 5 Belgian angled pigtail catheter advanced to the left common femoral arterial sheath to the level of the descending aorta and its the right coronary cusp. Ascending aortography was performed which showed 3 leaflets and parallax view. The descending aorta was not significantly dilated. Left heart catheterization: A 5 Belgian AL-1 catheter was advanced through the right common femoral sheath to the level of the descending aorta a 0.035 inch Amplatz straight tip Super Stiff wire was then advanced across the aortic valve with some difficulty. The AL-1 catheter was advanced into the left ventricle. A 260 cm 0.035 inch standard J-wire was then advanced to the left ventricular apex and the AL-1 catheter removed. A 5 Belgian angled pigtail catheter was then advanced over the J-wire into the left ventricular apex and the J-wire removed. A 0.035 inch 260 cm Medtronic Confida wire was then advanced to the left ventricular apex through the pigtail catheter, and the pigtail catheter removed. Transcatheter aortic valve replacement: A 23 mm Rodriguez Jesús S3 was advanced through the right common femoral sheath to the level of the descending aorta. The balloon was pulled back into the stent valve. The device was then advanced up and over the arch to the level of the ascending aorta and across the aortic valve. The pusher component was pulled back. Appropriate positioning was confirmed with a sending aortography and fluoroscopy. Under rapid ventricular pacing, the transcatheter aortic valve was slowly deployed. Immediate post deployment transesophageal echocardiogram revealed appropriate positioning. There was no perivalvular leak or pericardial effusion. Patient tolerated the procedure with good hemodynamic stability. The delivery sheath was then removed. The left common femoral arterial sheath was removed and 2 Perclose devices deployed with good hemostasis. The right common femoral artery sheath was removed and a Vascade closure device was deployed with good hemostasis. Post valve deployment intraoperative transesophageal echocardiogram findings: 1. Post aortic valve area 2.03 cm 2. Post implant mean aortic valve gradient 7 mmHg 3. Post implant peak velocity 1.34 m/seconds 4. Aortic valve insufficiency - trace perivalvular leak Conclusions: 1. Severe [place] aortic valve stenosis 2. Successful transcatheter aortic valve replacement with a bioprosthetic 23 mm Rodriguez Jesús S3 valve Plan: We will monitor the patient closely for any immediate postprocedural complications. We will consult electrophysiology for evaluation of postprocedure heart rhythm. We will obtain a limited transthoracic echocardiogram. We will continue antiplatelet therapy with aspirin and Plavix. Patient be transferred to the cardiovascular intensive care unit for further monitoring
[2018-06-27] MEDS ORDERED: fentaNYL Citrate Inj 100 MCG/2 ML Ampul ONE (10:33)
[2018-06-27] MEDS ORDERED: Iohexol 350 MG/ML 100 ML Vial (for Cath Lab) IVCONTRAST ONE (11:35)
[2018-06-27] MEDS ORDERED: Morphine Sulfate Inj 2 MG/ML Vial IV.PUSH PRN (12:49)
[2018-06-27] MEDS ORDERED: hydrALAZINE HCl Inj 20 MG/ML Vial IV.PUSH PRN (12:49)
[2018-06-27] MEDS ORDERED: Acetaminophen 325 MG Tablet PO PRN (13:53)
--- NOTE | 2018-06-27 14:31 | P.CONCC ---
History of Present Illness Service: Critical care Consult date: 06/27/18 Requesting Physician: Austin Ann Reason for Consult: s/p TAVR Primary Care Provider: Abelino Phillip MD Chief Complaint: Severe aortic valve stenosis History of Present Illness: Patient is a 78-year-old female with past medical history of coronary artery disease with CABG in 2004, history of PCI, type 2 diabetes, hypertension, atrial fibrillation, severe symptomatic aortic stenosis. Patient was seen and evaluated by cardiothoracic surgery for possible surgical AVR but felt to be intermediate risk and therefore transcatheter aortic valve replacement was recommended. Admitted today for TAVR by by Dr. Ann. Patient underwent temporary transvenous pacemaker placement and Transcatheter aortic valve replacement with Rodriguez 23 mm Jesús S3 bioprosthetic valve today. No complications intraoperatively or immediate postop. Post implant LEAH showed a mean aortic valve gradient 7 mmHg, trace perivalvular leak. Critical care medicine was consulted for assistance with management I evaluated the patient in the ICU. She is complaining of headache she is bradycardic intermittently requiring temporary pacer. She has a wide pulse pressure but asymptomatic post procedure LEAH did not show significant perivalvular leak. Her noninvasive cuff pressure shows normal pulse pressure Review of Systems All other systems reviewed negative except as stated in HPI [facility] - History History Provided By: Patient - Medical History Medical History: Medical History (Last Updated 06/27/18 @ 06:11 by Kralee Dumont RN) Aortic stenosis Atrial fibrillation CKD (chronic kidney disease), stage II Colitis Diabetes mellitus HTN (hypertension) Hiatal hernia Hyperlipidemia Sinus bradycardia Syncope - Surgical History Surgical History: Surgical History (Last Updated 06/27/18 @ 06:11 by Karlee Dumont RN) History of cardiac cath Hx of CABG - Tobacco History Smoking Status: Never smoker - Alcohol History How Often Do You Have a Drink Containing Alcohol: Never Medications and Allergies Active Medications: Active Medications Acetaminophen (Tylenol) 650 mg PO Q4H PRN PRN Reason: HEADACHE Last Admin: 06/27/18 14:00 Dose: 650 mg Aspirin (Aspirin) 325 mg PO ASSISTANT DEPARTMENT MANAGER [facility] Stop: 06/30/18 05:39 Aspirin (Aspirin Chew) 81 mg PO DAILY [facility] Chlorhexidine Gluconate (Chlorhexidine 2% Cloth) 3 pack TOPICAL ASSISTANT DEPARTMENT MANAGER [facility] Stop: 06/30/18 05:39 Clonidine HCl (Catapres) 0.2 mg PO Q6H PRN PRN Reason: SBP > 160 mmHg Clopidogrel Bisulfate (Plavix) 75 mg PO DAILY [facility] Ferrous Sulfate (Ferosul) 325 mg PO DAILY [facility] Hydralazine HCl (Apresoline Inj) 10 mg IV.PUSH Q30M PRN PRN Reason: SBP > 160 mmHg Cefazolin Sodium/Dextrose (Ancef 2 Gm Premix Inj) 2 gm in 50 mls @ 100 mls/hr IV.SIG ONCE [facility] Stop: 06/30/18 05:39 Last Infusion: 06/27/18 09:23 Dose: Infused Sodium Chloride (Ns Inj) 1,000 mls @ 125 mls/hr IV.CONT .Q8H [facility] Sodium Chloride (Ns Inj) 500 mls @ 30 mls/hr IV.SIG .Q10H [place] Sodium Chloride (Ns Inj) 1,000 mls @ 125 mls/hr IV.CONT .Q8H [facility] Stop: 06/27/18 16:59 Last Admin: 06/27/18 14:01 Dose: 125 mls/hr Morphine Sulfate (Morphine Inj) 2 mg IV.PUSH Q30M PRN PRN Reason: BREAKTHROUGH PAIN Mupirocin (Bactroban 2% Nasal Oint) 1 applicatio EACH NARE ASSISTANT DEPARTMENT MANAGER [facility] Stop: 06/30/18 05:39 Ondansetron HCl (Zofran Inj) 4 mg IV.PUSH ONCE PRN PRN Reason: NAUSEA OR VOMITING Oxycodone/Acetaminophen (Percocet 5/325 Mg) 1 tab PO Q6H PRN PRN Reason: PAIN SCALE 3 TO 5 Povidone Iodine (Betadine 5% Antisepsis Kit) 1 applicatio TOPICAL ASSISTANT DEPARTMENT MANAGER [facility] Stop: 06/30/18 05:39 Allergies Allergy/AdvReac Type Severity Reaction Status Date / Time No Known Allergies Allergy Verified 06/27/18 06:07 Home Medications Medication Instructions Recorded Confirmed Type amlodipine 5 mg PO DAILY 05/30/18 06/27/18 History aspirin [Aspir-81] 81 mg PO DAILY 05/30/18 06/27/18 History gabapentin 100 mg PO HS 05/30/18 06/27/18 History lisinopril 10 mg PO DAILY 05/30/18 06/27/18 History Physical Exam Vital signs: Vital Signs 06/27/18 06:11 06/27/18 10:45 06/27/18 12:00 Temperature 98.1 F 98.0 F Pulse Rate 46 L 56 L 55 L Respiratory Rate 16 16 Blood Pressure 144/62 H 139/44 L Pulse Oximetry 100 98 06/27/18 13:00 Temperature 98.5 F Pulse Rate 54 L Respiratory Rate 16 Blood Pressure 118/27 L Pulse Oximetry 99 Intake & Output 06/26/18 06/27/18 06/27/18 18:59 06:59 18:59 Intake Total 1050 / 1050 Output Total 100 / 100 Balance 950 / 950 Weight 58.1 kg Intake: IV 50 / 50 Ancef 2 GM Premix Inj 2 gm In 50 / 50 50 ml @ 100 mls/hr IV.SIG ONCE CY Rx#:[id number] Anesthesia Amount 1000 / 1000 Output: Estimated Blood Loss 100 / 100 Other: Weight On Admission 58.1 kg Narrative: - Constitutional no acute distress, except for headache - Routine HEENT Exam EOMI, PERRL ENT: mucous membranes moist - Routine Neck Exam No JVD, left IJ introducer in place with temporary pacemaker wire - Routine Respiratory Exam Present: CTA bilaterally. No wheezes or crackles - Routine Cardiovascular Exam S1-S2 normal. Grade 1 systolic murmur at the aortic area. Intermittently paced rhythm - Routine Abdominal Exam Abdomen soft, normoactive bowel sounds - Routine Extremities Exam Bilateral groins dressing intact no hematoma. Peripheral pulses palpable - Routine Neurological Exam Awake alert oriented. No focal deficits Septic Shock Reassessment Septic shock perfusion: reassessment completed Assessment and Plan - Assessment and Plan Plan: ASSESSMENT: S/p TAVR with Rodriguez 23 mm Jesús S3 bioprosthetic valve Status post temporary venous pacemaker placement Severe aortic stenosis, symptomatic Atrial fibrillation Coronary artery disease history of CABG in 2004 Hypertension Type 2 diabetes PLAN: NEURO: -As needed morphine or p.o. Tylenol for pain -Minimize sedating medications RESP: -Aggressive pulmonary toilet -DuoNeb every 2 hours as needed for shortness of breath CV: -s/p uneventful TAVR as above -Patient has history of bradycardia intermittently pacer dependent -Evaluation by EP pending at this time -Aspirin Plavix to be resumed from tomorrow -Wide pulse pressure on art line however normal pulse pressure on noninvasive -Postprocedure LEAH did not show significant perivalvular leak GI: -N.p.o. for pacemaker evaluation : -Monitor renal function closely. ID: -Perioperative cefazolin given HEME: -Monitor CBC, coags ENDO: -Electrolyte replacement per protocol Level 3 consult note Code Status: Full
--- NOTE | 2018-06-27 17:07 | ECG ---
Date Performed: 06/27/2018 Time Performed: 10:30:12 PTAGE: 78 years EKG: Baseline artifact present Sinus bradycardia Left bundle branch block Abnormal ECG Compared to prior electrocardiogram, left bundle branch block is now present. DOCTOR: Ac Rodriguez Interpretating Date/Time 06/27/2018 17:06:41
[2018-06-27] MEDS ORDERED: Heparin/NS PF Inj 500 ML ONE (17:17)
[2018-06-27] MEDS ORDERED: ceFAZolin 1 GM Premix Inj 0 GM/0 ML PIGGYBACK IV.SIG ONE (17:26)
[2018-06-27] MEDS ORDERED: Lidocaine 2% Inj 50 ML Vial ONE (17:27)
[2018-06-27] MEDS ORDERED: Isoproterenol HCl Inj 0.2 MG/ML Ampul ONE (17:58)
--- NOTE | 2018-06-27 18:26 | CATHPROC ---
Patient Name: Stella Jorge Study #: [id number] Initial MD: Kapil Shah Date of : 1940 Study Date: 06/27/2018 Cardiac Catheterization Report 06/27/2018 6:25:43 PM Financial #: [id number] 1 of 8 Patient Name: Stella Jorge Study #: [id number] Initial MD: Kapil Shah Date of : 1940 Study Date: 06/27/2018 Entire Case Report Patient Information Patient Name Stella Jorge Date of 1940 Age 78 years Financial # [id number] Gender F AlternateID Lab Number 6 Room Number 445 Height (in) 65.0 Height (cm) 165.1 BSA 1.64 Weight (lbs) 128.1 Weight (kg) 58.2 Patient Address/Phone Number Home Address [facility] Home Phone Number [phone] [facility] [phone] Study Information Study Number Admission Scheduled Start Study Start [id number] Jun 27 2018 5:13AM 06/27/2018 Jun 27 2018 5:10PM [place] [facility] Electrophysiology Study Admit Source Facility Department Other [facility] - Manager Foreign Physician and Clinical Staff Initial Kapil Parekh Email Designer Rita Mcbride,RT(R) TECH2 Other Anesthesia, EXTENSION SERVICE SPECIALIST IN CHARGE Recorder Roxana Campbell RN RN Lawler, Barbara, RN Scrub Batt, DaleRT(R) 06/27/2018 6:25:43 PM Financial #: [id number] 2 of 8 Patient Name: Stella Jorge Study #: [id number] Initial MD: Kapil Shah Date of : 1940 Study Date: 06/27/2018 Equipment Time Universal Grinder Operator Description Size Mfg Part Number Used/Scraped [id number] 17:49 [employer] BLANKET,WARM AIR CCL * Used *[id number] 17:49 [employer] PACK, CCL CUSTOM * Used *[id number] 17:49 MEDLINE PACER CUADRA, LIMB * 2530 *[id number] Used [id number] 17:49 [employer] CATHETER, JSN, QUAD FR 5 Used *[id number] 17:49 [employer] CATHETER, JSN, QUAD FR 5 Used *[id number] 17:49 [employer] MED[employer] CATHETER, JSN, QUAD FR 5 Used *[id number] 17:49 [employer] MED[employer] CATHETER, JSN, QUAD FR 5 Used *[id number] 17:49 [employer] MED[employer] SHEATH, EPS, FR5 FAST CATH FR 5 Used *[id number] 508221 17:49 [employer] SHEATH, EPS, FR5 FAST CATH FR 5 Used *[id number] [id number] 17:49 [employer] SHEATH, EPS, FR5 FAST CATH FR 5 Used *[id number] 039833 17:49 [employer] SHEATH, EPS, FR6 FAST CATH FR 6 Used *[id number] Insurance Information Insurance Payor Private Health Insurance Third Alliance Party Third Alliance Party Number [facility] History: Allergies Allergy Reaction No Known Allergies History: Risk Factors Hypertension Dyslipidemia Yes Yes Prior CABG Prior CABGDate Yes 07/17/2004 Diabetes Diabetes Therapy Yes None Labs Hgb (g/dl) Hct (%) WBC (l/cumm) Platelets (thousands) 11.60-17.00 35.00-51.00 4.00-11.00 150.00-450.00 13.6 37.9 7.5 180 06/27/2018 6:25:43 PM Financial #: [id number] 3 of 8 Patient Name: Stella Jorge Study #: [id number] Initial MD: Kapil Shah Date of : 1940 Study Date: 06/27/20 18 Glucose (mg/dl) BUN (mg/dl) Creatinine (mg/dl) BUN:Creatinine (1:x) 74.00-106.00 7.00-18.00 0.50-1.30 10.00-20.00 120 22 0.9 24.4 Na (meq/l) K (meq/l) 136.00-145.00 3.50-5.10 138 4.1 INR (PTT:PT) 0.90-1.10 1 Medication Medication Total Dose (Bolus/Oral) Medication Total Dosage/Unit 1% XYLOCAINE 20 mL Medications (Bolus/Oral) Medication Time Given Dosage/Unit Administered By Reason 1% XYLOCAINE 06/27/2018 5:47:51 PM 20 mL Kapil Shah 20 mL 1% XYLOCAINE given in lab by Kapil Shah in Right Groin via Subcutaneous. Ordered by Michelle Shah. Medication (Drip) Medication Time Given Dosage/Unit Concentration/Unit Diluent (ml) Solution ISUPREL 06/27/2018 6:04:10 PM 4 mcg/min 1 mg 250 NaCl .9 4 mcg/min ISUPREL given in lab by JEFF Zhou via Peripheral IV. Pump/Drip Flow = 60 ml/hr using NaCl .9 with a concentration of 1 mg in 250 ml. Ordered by Kapil Shah. IV Solutions 06/27/2018 5:10:32 PM 0 mL (IV) NaCl .9 IV Solutions given in lab by Roxana Campbell RN in Left Antecubital via Peripheral IV. Pump/Drip Flow = 30 ml/hr using NaCl .9. Ordered by Kapil Shah. Reason: As per physicians verbal order. IV Solutions 06/27/2018 5:10:33 PM 0 mL (IV) NaCl .9 IV Solutions given in lab by Roxana Campbell RN via Lt IJ introducer port IV. Pump/Drip Flow = 30 ml/ hr using NaCl .9. Reason: As per physicians verbal order. 06/27/2018 6:25:43 PM Financial #: [id number] 4 of 8 Patient Name: Stella Jorge Study #: [id number] Initial MD: Kapil Shah Date of : 1940 Study Date: 06/27/2018 Initial Case Assessment Cardiovascular HR NIBP 51 163/74 Edema Present Skin color Skin None Normal Warm Dry Circulatory - Right Pulses Dorsalis Pedis 1 Scale (0,1,2,3,4,d) Circulatory - Left Pulses Dorsalis Pedis 1 Scale (0,1,2,3,4,d) Circulatory - Lower Extremities Color Lower Right Color Lower Left Normal Normal Neurological State Oriented to time-place- Alert Moves all extremities person Respiration - General Respiration Rate SpO2 (%) O2 (lpm) (B/min) 17 100 4 06/27/2018 6:25:43 PM Financial #: [id number] 5 of 8 Patient Name: Stella Jorge Study #: [id number] Initial MD: Kapil Shah Date of : 1940 Study Date: 06/27/2018 Final Case Assessment Cardiovascular HR Rhythm NIBP 69 SR 107/53 Edema Present Skin color Skin None Normal Warm Dry Circulatory - Right Pulses Dorsalis Pedis 1 Scale (0,1,2,3,4,d) Circulatory - Left Pulses Dorsalis Pedis 1 Scale (0,1,2,3,4,d) Neurological State Oriented to time-place- Alert Moves all extremities person Respiration - General Respiration Rate SpO2 (%) (B/min) 18 98 Chronological Log Time Study Chronological Log 17:09:15 Patient arrived via Bed. 17:09:15 Patient Name, D.O.B, / Armband Verified By R.N. 17:09:16 Consent signed by the physician and the patient and verified by the Manager Foreign staff. 17:09:16 Pre-op and post- op instructions given; patient acknowledges understanding of instructions. 17:10:17 Verbal Stimulation=2 Physical Stimulation=2 Airway=2 Respiration=2 TOTAL=8. (0=absent, 1=li mited, 2=present) 17:10:18 Anesthesia at bedside. Assumes care of patient. 17:10:20 Patient has been NPO for More than 6Hrs. 17:10:22 Skin Breakdown- 17:10:23 Patient Warmer Placed on the Table. 17:10:24 Disposable Defibrillator Pads Placed On Patient. 17:10:25 Estelita Prominences Protected 17:10:28 A # 18 IV was noted in the Antecubital (left). Grade = 0 06/27/2018 6:25:43 PM Financial #: [id number] 6 of 8 Patient Name: Stella Jorge Study #: [id number] Initial MD: Kapil Shah Date of : 1940 Study Date: 06/27/2018 17:10:29 A # 5FR IV was noted in the Jugular Vein (left). Grade = 0 17:10:29 History and physical on the chart. IV Solutions given in lab by Roxana Campbell GARY in Left Antecubital via Peripheral IV. Pump/Dri p Flow = 30 ml/hr using 17:10:32 NaCl .9. Ordered by Kapil Shah. Reason: As per physicians verbal order. IV Solutions given in lab by Roxana Campbell RN via Lt IJ introducer port IV. Pump/Drip Flow = 30 ml/hr using NaCl .9. 17:10:33 Reason: As per physicians verbal order. Assessment: Initial Case, HR=51 BPM, FSSP=884/74 mmhg, Edema=None, Color=Normal, Skin = Warm, D ry Right Pulses: Padilla Ped=1 Left Pulses: Padilla Ped=1 17:10:36 Lower Right Extremities: Color=Normal Lower Left Extremities: Color=Normal Neurological: State=Alert, Ox3, BOX Respiration: Resp=17 B/min, MqQ8=156 %, O2=4 lpm 17:19:58 Bovie ground pad applied to: right thigh 17:20:42 Table restraints applied according to hospital policy 17:20:56 2% CHLORHEXIDINE GLUCONATE WASH AND NASAL SWIPE DONE PRIOR TO PROCEDURE. 17:31:20 Bilateral groin prepped with 2% chlorhexidine, and draped after a 3 min. waiting time. 17:31:20 Reference ECG taken Time Out. Correct patient, procedure, procedure equipment, site and side verified with physicia n present. Time 17:46:50 concurred by MD, individual staff and EXTENSION SERVICE SPECIALIST IN CHARGE. Time Out #2 - Consents verified, patient in correct position, all results are labled and displa yed, safety precautions 17:46:55 taken, antibiotics administered. Time out concurred by MD, individual staff and EXTENSION SERVICE SPECIALIST IN CHARGE in procedu re 17:47:36 Case Start 17:47:51 20 mL 1% XYLOCAINE given in lab by Kapil Shah in Right Groin via Subcutaneous. Ordered b y Kapil Shah. 17:48:42 Vascular access was obtained in the Fem Vein (right). 17:49:33 Vascular access was obtained in the Fem Vein (right). 17:49:34 Vascular access was obtained in the Fem Vein (right). 17:49:34 Vascular access was obtained in the Fem Vein (right). 17:49:37 A SHEATH, EPS, FR5 FAST CATH FR 5 was advanced into the Fem Vein (right) using the Modified Seldinger technique. 17:49:43 A SHEATH, EPS, FR5 FAST CATH FR 5 was advanced into the Fem Vein (right) using the Modified Seldinger technique. 17:49:46 A SHEATH, EPS, FR5 FAST CATH FR 5 was advanced into the Fem Vein (right) using the Modified Seldinger technique. 17:49:48 A SHEATH, EPS, FR6 FAST CATH FR 6 was advanced into the Fem Vein (right) using the Modified Seldinger technique. A CATHETER, JSN, QUAD FR 5 was advanced vis Fem Vein (right) and placed in the CS. Placement wa s visually 17:50:53 confirmed under fluoroscopy. A CATHETER, JSN, QUAD FR 5 was advanced vis Fem Vein (right) and placed in the HIS. Placement w as visually 17:51:10 confirmed under fluoroscopy. A CATHETER, JSN, QUAD FR 5 was advanced vis Fem Vein (right) and placed in the HRA. Placement w as visually 17:51:16 confirmed under fluoroscopy. A CATHETER, JSN, QUAD FR 5 was advanced vis Fem Vein (right) and placed in the RVA. Placement w as visually 17:51:22 confirmed under fluoroscopy. 17:54:15 EP STUDY IN PROGRESS 4 mcg/min ISUPREL given in lab by Anesthesia, EXTENSION SERVICE SPECIALIST IN CHARGE via Peripheral IV. Pump/Drip Flow = 60 ml/hr using NaCl .9 with 18:04:10 a concentration of 1 mg in 250 ml. Ordered by Kapil Shah. 18:14:51 D/C ISUPREL GTT 06/27/2018 6:25:43 PM Financial #: [id number] 7 of 8 Patient Name: Stella Jorge Study #: [id number] Initial MD: Kapil Shah Date of : 1940 Study Date: 06/27/2018 18:18:00 Catheter(s) removed without difficulty Assessment: Final Case, HR=69 BPM, Rhythm=SR, CMJM=710/53 mmhg, Edema=None, Color=Normal, Skin = Warm, Dry Right Pulses: Padilla Ped=1 18:18:02 Left Pulses: Padilla Ped=1 Neurological: State=Alert, Ox3, BOX Respiration: Resp=18 B/min, SpO2=98 % 18:18:06 Catheter(s) removed without difficulty 18:18:07 Sheath removed; pressure applied to access site. 18:18:52 Case End (Physician broke scrub) 18:18:53 Sterile dressing applied to site 18:18:54 No case complications noted. 18:18:55 Cine recording checked. 18:18:57 Bedside Report will be given. 18:19:00 Defibrillator and ground pads removed. Skin intact. 18:25:00 Patient moved to stretcher End Study - Contrast Media Used In Study Contrast Total Opened (mL) Total Used (mL) Total Wasted (mL) Unspecified 0 0 0 End Study - Maximum Contrast Load Max Contrast Load (mL) 323.5 End Study - Radiation Exposure Fluoro Time (minutes) 2.1 End Study - Patient Disposition Complications Transferred To Interventional Outcome No Telemetry Bed successful 06/27/2018 6:25:43 PM Financial #: [id number] 8
--- NOTE | 2018-06-27 21:13 | MA ---
cc: Kapil Shah MD , DATE: 06/27/2018 INDICATIONS: Ms. Jorge is an 78-year-old female with history of aortic stenosis status post TAVR, required a pacing post-procedure. There is no report of apparent AV block. Decision for electrophysiology study and possible device insertion was taken. The risks, the nature and the benefits of the procedure were clearly stated to her and her family. Risks include pneumothorax, cardiac perforation, stroke and even . She understood and agreed to proceed. DESCRIPTION OF PROCEDURE: After written informed consent was obtained, the patient was brought to the EP lab where she was prepped and draped in the usual sterile fashion. Conscious sedation was initiated and maintained throughout the procedure by the anesthesiologist. Once sedation was verified, the right inguinal area was anesthetized with 2% Xylocaine. Using modified Seldinger technique, the right femoral vein was cannulated on 4 occasions, 4 guidewires were advanced. Over the wire, and a 6-[place]i Hemaquet were advanced. Then, under fluoroscopic guidance through the 5 and 6-[place] Hemaquet, four 5-[place] Laura quadripolar electrophysiology catheters were advanced and placed on the His, right atrium, coronary sinus, and right ventricular apex. Basic intervals were measured. They were within normal limits. At this point, atrial pacing protocol was performed. Atrial pacing, but of course of incremental atrial pacing as well as program stimulation with coronary artery in cycle length and up to 1 extra stimuli delivered. No tachyarrhythmia was induced. Sinus node recovery time were within normal limit. Then, ventricular pacing protocol was performed. There was VA conduction. No tachyarrhythmia was induced. Then Isuprel infusion was initiated. There was good conduction. At that point, the procedure was complete. All catheters were removed. The patient has adequate AV of 52. Adequate sinus node recovery time. Good heart rate on Isuprel. At this point, there is no need for pacing support. The patient is going to be transferred back to . The patient tolerated the procedure. Blood loss minimal. 1. ELECTROCARDIOGRAM: At baseline, the patient was V-pacing when temporary pacer disconnected. She was in sinus aminata. Post-procedure electrocardiogram was essentially normal. 2. BASIC INTERVAL: Base cycle length was 1140 milliseconds, AH 86 and HV at 52 milliseconds. 3. ATRIAL PACING PROTOCOL: Wenckebach of the node was 460 milliseconds. Sinus recovery time were within normal limits. 4. VENTRICULAR PACING PROTOCOL: There was VA conduction. No tachyarrhythmia was induced. CONCLUSION: Good AV adina conduction. for supraventricular tachyarrhythmia. RECOMMENDATIONS: The patient has history of bradycardia. Asymptomatic good blood pressure. No need for pacing support at this point. Temporary pacemaker disconnected. The patient will be observed overnight. She is stable. Temporary pacer wire can be removed in the morning and the patient discharged home. Kapil Shah MD HS/sv/do , 07:05 PM , 07:16 PM
--- NOTE | 2018-06-27 21:48 | ECG ---
Date Performed: 06/27/2018 Time Performed: 06:08:22 PTAGE: 78 years EKG: Sinus bradycardia. Prolonged QT interval Consider left atrial abnormality Possible septal i nfarct - age undetermined Low QRS voltages in precordial leads Abnormal ECG PREVIOUS TRACING : 05/31/2018 04.13 Since the previous tracing, no significant change noted DOCTOR: Oswald Rosario Interpretating Date/Time 06/27/2018 21:47:04
[2018-06-27 23:28] VITALS: RESP 16
[2018-06-28 05:06] LABS: Hematocrit 26.6 % (35.0-46.0); Hemoglobin 9.7 gm/dL (11.6-15.3); Mean Corpuscular Hemoglobin 32.7 pg (27.0-34.0); Mean Corpuscular Volume 89.7 fL (80.0-100.0); Mean Platelet Volume 8.8 fL (7.0-11.0); Platelet Count 110 th/mm3 (150-450); Red Blood Count 2.97 mil/mm3 (4.00-5.30); Red Cell Distribution Width 13.9 % (11.6-17.2); White Blood Count 7.8 th/mm3 (4.0-11.0)
[2018-06-28 05:19] LABS: Mean Corpuscular HGB Conc 36.4 % (32.0-36.0)
[2018-06-28 05:29] LABS: Alanine Aminotransferase 17 U/L (10-53); Albumin 3.1 g/dL (3.4-5.0); Alkaline Phosphatase 46 U/L (45-117); Anion Gap 9 meq/L (5-15); Aspartate Aminotransferase 18 U/L (15-37); Blood Urea Nitrogen 12 mg/dL (7-18); Carbon Dioxide 21.2 meq/L (21.0-32.0); Chloride 110 meq/L (98-107); Glomerular Filtration Rate Greater Than 89 mL/min (>89); Glucose,Random 95 mg/dL (74-106); Potassium 3.7 meq/L (3.5-5.1); Sodium 140 meq/L (136-145); Total Protein 5.8 g/dL (6.4-8.2)
--- NOTE | 2018-06-28 07:56 | P.PNCV ---
- Note Subjective/Hospital Course: 06/28 Clinically and hemodynamically stable Groins soft without hematoma Remains in atrial bradycardia which is her underlying rhythm Anticipate discharge later today Objective: Vital Signs - 24 hr 06/27/18 10:45 06/27/18 12:00 06/27/18 13:00 Temperature 98.0 F 98.5 F Pulse Rate 56 L 55 L 54 L Respiratory Rate 16 16 Blood Pressure 139/44 L 118/27 L Pulse Oximetry 98 99 06/27/18 15:00 06/27/18 19:00 06/27/18 20:48 Temperature 98.0 F 98.6 F Pulse Rate 53 L 50 L Respiratory Rate 18 16 Blood Pressure 116/50 L 119/51 L Pulse Oximetry 98 99 98 06/27/18 23:00 06/28/18 00:00 06/28/18 03:00 Temperature 98.6 F 98.8 F Pulse Rate 50 L 52 L Respiratory Rate 16 16 16 Blood Pressure 141/54 H 139/62 Pulse Oximetry 97 97 06/28/18 07:49 Temperature Pulse Rate 54 L Respiratory Rate Blood Pressure Pulse Oximetry Labs: Laboratory Results - last 12 hr 06/28/18 06/28/18 04:45 04:45 WBC 7.8 RBC 2.97 L Hgb 9.7 L Hct 26.6 L MCV 89.7 MCH 32.7 MCHC 36.4 H RDW 13.9 Plt Count 110 L D MPV 8.8 Sodium 140 Potassium 3.7 Chloride 110 H Carbon Dioxide 21.2 Anion Gap 9 BUN 12 Creatinine 0.63 Estimated GFR Greater than 89 Random Glucose 95 Calcium 8.0 L Total Bilirubin 0.9 AST 18 ALT 17 Alkaline Phosphatase 46 Total Protein 5.8 L Albumin 3.1 L Result Diagrams: 06/28/18 04:45 06/28/18 04:45
--- NOTE | 2018-06-28 08:00 | ECG ---
Date Performed: 06/28/2018 Time Performed: 04:44:56 PTAGE: 78 years EKG: Unclear underlying supraventricular rhythm Prolonged QT interval Incomplete right bundle br anch block Ant/septal and lateral ST changes are nonspecific Abnormal ECG Compared to prior electroca rdiogram, Rhythm cannot accurately be compared. Incomplete right bundle branch block has replaced non specific conduction defect. PREVIOUS TRACING : 06/27/2018 10.30 DOCTOR: Ac Rodriguez Interpretating Date/Time 06/28/2018 07:59:09
[2018-06-28 08:01] VITALS: TEMP 98.6; O2SAT 98
--- NOTE | 2018-06-28 08:04 | MB ---
cc: Kapil Shah MD DATE: 06/27/2018 REASON FOR CONSULTATION: Possible V pacing, possible AV block. HISTORY OF PRESENT ILLNESS: Ms. Jorge is an 78-year-old female with history of coronary artery disease, coronary artery bypass grafting and aortic stenosis, who underwent transaortic valve replacement. During procedure, possible AV block suspected. The patient was V pacing. I was consulted for evaluation and management. The chart was reviewed. The patient was evaluated. ALLERGIES: None. SOCIAL HISTORY: Negative for smoking and drinking. FAMILY HISTORY: Noncontributory to her current medical condition. MEDICATIONS: The patient currently is on aspirin 81 mg a day, clonidine p.r.n., Plavix 75 mg a day, Lasix p.r.n., Lopressor p.r.n. She was on metformin at home. REVIEW OF SYSTEMS: She referred no chest pain, no chest discomfort, no vomiting, no fever. PHYSICAL EXAMINATION: GENERAL: Alert, fully oriented. VITAL SIGNS: Blood pressure 160/50, pulse 53, respiratory rate 18. LUNGS: Ventilated. CARDIOVASCULAR: S1, S2. No gallop. No murmur. ABDOMEN: Soft. No mass or bruit. EXTREMITIES: No edema. Left fibular area with ____ a pacing wire. DIAGNOSTIC DATA: Electrocardiogram this morning indicates sinus aminata, diffuse ST changes. Postprocedure electrocardiogram indicates V pacing. ASSESSMENT AND RECOMMENDATIONS: Ms. Jorge has transaortic valve replacement. She is V pacing. There is underlying bradycardia. No clear episode of complete AV block documented. I had a long conversation with her. Electrophysiology study will be performed. If AV block detected or there is any ____ disease, then device will be inserted. The risks, the nature and the benefits of the procedure are clearly stated to her. Risks include pneumothorax, cardiac perforation, stroke and even . The patient understood and agreed to proceed. Procedure will be performed during hospitalization. Kapil Shah MD HS/estela/rr , 07:08 PM , 07:19 PM
[2018-06-28] MEDS ORDERED: Ferrous Sulfate 325 MG Tablet PO SCH (09:00)
--- NOTE | 2018-06-28 09:18 | P.DS ---
Date of admission: 06/27/18 05:13 Primary care physician: Abelino Phillip MD Brief History from admission: Elective transcatheter valve replacement Patient update on day of discharge: Patient did well overnight. Patient had electrophysiology study which did not show the need for permanent pacemaker. No complaints. DS: Diagnosis - Discharge Diagnosis (1) Diastolic congestive heart failure Status: Acute (2) Severe aortic valve stenosis Status: Acute DS: Medications - Discharge Medications Prescriptions: ferrous sulfate [FeroSul] 325 mg PO DAILY #30 tab DS: Summary Hospital Course: Patient was brought in for elective transcatheter aortic valve replacement which went well. Patient underwent electrophysiology study. No permanent pacemaker was necessary. Patient is ready for discharge. - Time Spent with Patient Total time spent providing and/or coordinating discharge services: Greater than 30 minutes Exam Vital signs: Vital Signs 06/27/18 10:45 06/27/18 12:00 06/27/18 13:00 Temperature 98.0 F 98.5 F Pulse Rate 56 L 55 L 54 L Respiratory Rate 16 16 Blood Pressure 139/44 L 118/27 L Pulse Oximetry 98 99 06/27/18 15:00 06/27/18 19:00 06/27/18 20:48 Temperature 98.0 F 98.6 F Pulse Rate 53 L 50 L Respiratory Rate 18 16 Blood Pressure 116/50 L 119/51 L Pulse Oximetry 98 99 98 06/27/18 23:00 06/28/18 00:00 06/28/18 03:00 Temperature 98.6 F 98.8 F Pulse Rate 50 L 52 L Respiratory Rate 16 16 16 Blood Pressure 141/54 H 139/62 Pulse Oximetry 97 97 06/28/18 07:49 06/28/18 07:52 Temperature 98.6 F Pulse Rate 54 L 50 L Respiratory Rate 16 Blood Pressure 125/40 L Pulse Oximetry 98 Intake & Output 06/27/18 06/28/18 06/28/18 18:59 06:59 18:59 Intake Total 1050 / 1050 240 / 240 Output Total 550 / 550 900 / 900 Balance 500 / 500 -660 / -660 Weight 58.6 kg Intake: IV 50 / 50 Ancef 2 GM Premix Inj 2 gm In 50 / 50 50 ml @ 100 mls/hr IV.SIG ONCE CY Rx#:[id number] Oral 240 / 240 Anesthesia Amount 1000 / 1000 Output: Urine 450 / 450 900 / 900 Estimated Blood Loss 100 / 100 Other: # Voids 2 4 - Constitutional no acute distress - Routine HEENT Exam Head: Present: normocephalic Eye: Present: EOMI, PERRL ENT: Present: mucous membranes moist - Routine Neck Exam Absent: JVD - Routine Respiratory Exam Present: CTA bilaterally - Routine Cardiovascular Exam Present: RRR, murmur - Routine Abdominal Exam Present: soft, normoactive bowel sounds - Routine Extremities Exam Absent: edema - Routine Neurological Exam Present: oriented X3, CN II-XII intact. Absent: sensory deficit, motor deficit Results Procedures completed during hospitalization: Transcatheter aortic valve replacement Electrophysiology study Labs on day of discharge: Labs from last 24 hours 06/28/18 06/28/18 06/27/18 04:45 04:45 05:45 WBC 7.8 RBC 2.97 L Hgb 9.7 L Hct 26.6 L MCV 89.7 MCH 32.7 MCHC 36.4 H RDW 13.9 Plt Count 110 L D MPV 8.8 Sodium 140 Potassium 3.7 Chloride 110 H Carbon Dioxide 21.2 Anion Gap 9 BUN 12 Creatinine 0.63 Estimated GFR Greater than 89 Random Glucose 95 Calcium 8.0 L Total Bilirubin 0.9 AST 18 ALT 17 Alkaline Phosphatase 46 Total Protein 5.8 L Albumin 3.1 L MTS Gel Crossmatch See Detail Bld Prod Order Comment Discharge Plan - Discharge Disposition Patient Disposition: 01 Discharge Home - Discharge Condition Condition: Good - Discharge Order Discharge Orders: Discharge Order (Routine); Ordered 06/28/18 Ordered By: Austin Ann Cardiology Clear for Discharge (Routine); Ordered 06/28/18 Ordered By: Austin Ann - Discharge Details Anticipated Discharge Date: 06/28/18 - Physicians Team Primary Care Provider: Abelino Phillip Attending Provider: Austin Ann Other Providers: Cooper Yoder MD ; Roxann Hamilton MD ; Kapil Shah MD - Rxs /Orders / Referrals /Forms Prescriptions: New ferrous sulfate [FeroSul] 325 mg (65 mg iron) Tablet 325 mg PO DAILY Qty: 30 RF: 3 Continue amlodipine 5 mg Tablet 5 mg PO DAILY aspirin [Aspir-81] 81 mg Tablet,Delayed Release (Dr/Ec) 81 mg PO DAILY clopidogrel [Plavix] 75 mg Tablet 75 mg PO DAILY RF: 0 gabapentin 100 mg Capsule 100 mg PO HS lisinopril 10 mg Tablet 10 mg PO DAILY Referrals: Abelino Phillip MD [Primary Care Provider] - See Instructions - Discharge Instructions Patient Printed Instructions: Transcatheter Aortic Valve Replacement (DC), Pacemaker (DC) Additional Instructions: Please call your PCP and make follow up appointment for next one to two weeks. Call Hyacinth Melton RN Structural Commercial Diver with any questions or concerns. 30 day Echocardiogram 07/28/18 915am [facility] [phone] [place] [address] 30-day TAVR follow up Dr Yoder 08/16/18 1130am [facility] [phone] [place] [address] 1 year Echocardiogram 06/28/19 1130am [facility] [phone] [place] [address] [address]R follow up [address] Yoder 07/05/19 9am [facility] [phone] [place] [address]
--- NOTE | 2018-06-28 10:43 | ECHRPT ---
Indication: CONCLUSIONS Tricuspid aortic valve Severe aortic valve stenosis Status post perioperative transcatheter valve replacement No perivalvular leak. BP: / HR: Rhythm: Technical Quality: Medications Complications Proc. Components FINDINGS LEFT VENTRICLE Normal left ventricular size and wall thickness. The left ventricular systolic function is normal wi th an estimated ejection fraction in the range of 60-65%. Left ventricular diastolic function parameters a re normal. RIGHT VENTRICLE Normal right ventricular size and systolic function. LEFT ATRIUM The left atrial size is normal. RIGHT ATRIUM The right atrial size is normal. ATRIAL SEPTUM Normal atrial septal thickness without atrial level shunting by limited color doppler interrogation. AORTA The aortic root and proximal ascending aorta are normal in size on limited imaging. MITRAL VALVE Structurally normal mitral valve. No mitral valve stenosis or regurgitation. AORTIC VALVE Tricuspid aortic valve Severe aortic valve stenosis Status post perioperative transcatheter valve replacement No perivalvular leak No residual stenosis TRICUSPID VALVE Structurally normal tricuspid valve. No tricuspid valve stenosis or regurgitation. VESSELS The inferior vena cava is normal in size. PULMONARY VALVE The pulmonary valve is not well visualized. PERICADIUM No pericardial effusion. Austin Ann MD, FACC (Electronically Signed) Final Date:28 June 2018 10:42
--- NOTE | 2018-06-28 10:53 | ECHRPT ---
Indication: CONCLUSIONS Status post transcatheter aortic valve replacement Although there is reduced aortic valve area, mean gradient is low. No significant residual aortic s tenosis No significant paravalvular leak or aortic regurgitationThe pulmonary valve is not well visualized. BP: / HR: Rhythm: MEASUREMENTS (Male / Female) Normal Values Technical Quality: 2D ECHO LV Diastolic Diameter PLAX 4.0 cm 4.2 - 5.9 / 3.9 - 5.3 cm LV Systolic Diameter PLAX 2.8 cm IVS Diastolic Thickness 1.3 cm 0.6 - 1.0 / 0.6 - 0.9 cm LVPW Diastolic Thickness 1.3 cm 0.6 - 1.0 / 0.6 - 0.9 cm LV Relative Wall Thickness 0.6 RV Internal Dim ED PLAX 3.8 cm LVOT Diameter 1.9 cm Aortic Root Diameter 2.1 cm LA Systolic Diameter LX 4.1 cm 3.0 - 4.0 / 2.7 - 3.8 cm DOPPLER AV Peak Velocity 306.0 cm/s AV Peak Gradient 37.5 mmHg AV Mean Gradient 19.0 mmHg AV Velocity Time Integral 63.1 cm LVOT Peak Velocity 88.6 cm/s LVOT Peak Gradient 3.1 mmHg LVOT Velocity Time Integral 15.0 cm AV Area Cont Eq vti 0.7 cm AV Area Cont Eq pk 0.8 cm FINDINGS LEFT VENTRICLE Normal left ventricular size and wall thickness. The left ventricular systolic function is normal wi th an estimated ejection fraction in the range of 60-65%. Left ventricular diastolic function parameters a re normal. RIGHT VENTRICLE Normal right ventricular size and systolic function. LEFT ATRIUM The left atrial size is normal. RIGHT ATRIUM The right atrial size is normal. ATRIAL SEPTUM Normal atrial septal thickness without atrial level shunting by limited color doppler interrogation. AORTA The aortic root and proximal ascending aorta are normal in size on limited imaging. MITRAL VALVE Structurally normal mitral valve. No mitral valve stenosis or regurgitation. AORTIC VALVE Status post transcatheter aortic valve replacement Although there is reduced aortic valve area, mean gradient is low. No significant residual aortic s tenosis No significant paravalvular leak or aortic regurgitation TRICUSPID VALVE Structurally normal tricuspid valve. No tricuspid valve stenosis or regurgitation. PULMONARY VALVE The pulmonary valve is not well visualized. VESSELS The inferior vena cava is normal in size. PERICARDIUM No pericardial effusion. Austin Ann MD, FACC (Electronically Signed) Final Date:28 June 2018 10:52
[2018-06-28 11:18] VITALS: BP 115/54
[2018-06-28 12:08] VITALS: PULSE 52
== END 2018-06-28 15:21 | disposition home or self-care (01) ==
LOC: HSDI 05:13 → HDIC 05:17 → HCVI 10:25
PROVIDERS: ADMIT Internal Medicine; ATTEND Internal Medicine
PROC: TAVRHYB (ICD-10-PCS; 2018-06-27 08:00)